=== PATIENT | female | born 1965 | race African-American/Black ===

== ENCOUNTER 2024-05-22 05:29 | Inpatient (IN) | payer OTHER ==
[2024-05-22] VITALS (11 sets, daily range): BP systolic 95–159; BP diastolic 62–86; PULSE 88–111; RESP 16–26; TEMP 97.9–98.3; O2SAT 96–100
[~2024-05-22] VITALS: Ht 167.6 cm; Wt 114.2 kg
[2024-05-22] MEDS: ALBUTEROL SULF 2.5 MG/0.5ML(0.5%) NEB SOLN NEB ONE ×3 (06:21→14:16)
[2024-05-22] MEDS: IPRATROPIUM BROM 0.5 MG/2.5ML INH SOL NEB ONE ×3 (06:21→14:16)
--- NOTE | 2024-05-22 07:24 | ED.PDOC ---
SOB-HPI HPI Comments 58Y F with PMHx DM, CHF, and asthma presents to ED for chief complaint SOB with cough. Per pt, she was recently seen at [facility] and tested negative for all the viruses. Pt was sent home with Albuterol but has not felt relief. Chief Complaint: Shortness of Breath Time Seen by MD: 06:40 Reviewed notes: Nurses Notes, Medications, Allergies Information Source: Patient Mode of Arrival: Ambulatory Severity: Moderate Timing: Days Duration: Since onset Context: At Rest PE Risk Factors: None History of: Asthma, CHF Modifying Factors: Nothing Associated Signs and Symptoms: Wheeze, Cough Past Medical History PAST MEDICAL HISTORY: Asthma, CHF, DM Surgical History: Denies all surgeries MEDICAL LOGISTICS SPECIALIST History: No Pertinent MEDICAL LOGISTICS SPECIALIST History Family History Family History: Unknown Social History Smoker: Non-Smoker Alcohol: Denies ETOH Use Drugs: Denies Drug Use Lives In: Home Constitutional: denies: chills, diaphoresis, fatigue, fever, malaise, sweats, weakness, others EENTM: denies: blurred vision, double vision, ear bleeding, ear discharge, ear drainage, ear pain, ear ringing, eye pain, eye redness, hearing loss, mouth pain, mouth swelling, nasal discharge, nose bleeding, nose congestion, nose pain, photophobia, tearing, throat pain, throat swelling, voice changes, others Respiratory: reports: cough, shortness of breath, wheezing; denies: hemoptysis, orthopnea, SOB at rest, SOB with excertion, stridor, others Cardiovascular: denies: chest pain, dizzy spells, diaphoresis, Dyspnea on exertion, edema, irregular heart beat, left arm pain, lightheadedness, palpitations, PND, syncope, others Gastrointestinal: denies: abdomen distended, abdominal pain, blood streaked bowels, constipated, diarrhea, dysphagia, difficulty swallowing, hematemesis, melena, nausea, poor appetite, poor fluid intake, rectal bleeding, rectal pain, vomiting, others Genitourinary: denies: abnormal vagina bleeding, burning, dyspareunia, dysuria, flank pain, frequency, hematuria, incontinence, pain, , vagina discharge, urgency, others Neurological: denies: dizziness, fainting, headache, left sided numbness, left sided weakness, numbness, paresthesia, pre-existing deficit, right sided numbness, right sided weakness, seizure, speech problems, tingling, tremors, weakness, others Musculoskeletal: denies: back pain, gout, joint pain, joint swelling, muscle pain, muscle stiffness, neck pain, others Integumetry: denies: bruises, change in color, change in hair/nails, dryness, laceration, lesions, lumps, rash, wounds, others Allergic/Immunocompromised: denies: Difficulty Healing, Frequent Infections, Hives, Itching, others Hematologic/Lymphatic: denies: anemia, blood clots, easy bleeding, easy bruising, swollen glands, others Endocrine: denies: excessive hunger, excessive sweating, excessive thirst, excessive urination, flushing, intolerance to cold, intolerance to heat, unexplained weight gain, unexplained weight loss, others Psychiatric: denies: anxiety, bipolar disorder, depression, hopeless, panic disorder, schizophrenia, sleepless, suicidal, others All Other Systems: Reviewed and Negative Physical Exam General Appearance: No Apparent Distress, Normal HEENT: Normal ENT Inspection, Pharynx Normal, TMs Normal Neck: Full Range of Motion, Non-Tender, Normal, Normal Inspection Respiratory: Chest Non-Tender, Wheezing (bilateral) Cardiovascular: No Edema, No JVD, No Murmur, No Gallop, Normal Peripheral Pulses, Regular Rate/Rhythm Breast Exam: Deferred Gastrointestinal: No Organomegaly, Non Tender, No Pulsatile Mass, Normal Bowel Sounds, Soft Genitalia: Deferred Pelvic: Deferred Rectal: Deferred Extremities: No calf tenderness, Normal capillary refill, Normal inspection, Normal range of motion, Non-tender, No pedal edema Musculoskeletal : Apperance: Normal Neurologic: Alert, refrigeration installer II-XII nml as Tested, No Motor Deficits, Normal Affect, Normal Mood, No Sensory Deficits Cerebellar Function: Normal Reflexes: Normal Skin: Dry, Normal Color, Warm Lymphatic: No Adenopathy Was a procedure done? Was a procedure done?: No Differential Dx Differential Diagnosis: Asthma, Bronchitis, CHF, URI X-Ray, Labs, Meds, VS Vital Signs Date Time Temp Pulse Resp B/P (MAP) Pulse Ox O2 Delivery O2 Flow Rate FiO2 05/22/24 08:07 98.6 133 26 145/68 (93) 97 98.6 05/22/24 08:07 133 26 97 Nasal Cannula 2.0 05/22/24 07:52 26 97 Nasal Cannula* 2 28 05/22/24 07:42 22 97 Nasal Cannula* 2 28 05/22/24 06:21 22 96 Nasal Cannula* 2 28 05/22/24 05:51 97.7 110 26 165/79 (107) 95 05/22/24 05:51 26 95 Room Air* 0 21 Lab Test 05/22/24 08:18 05/22/24 07:36 05/22/24 07:15 05/22/24 07:00 Range/Units Troponin I High Sensitivity 4 4 </=34 ng/L Blood Gas Specimen Type Arterial Blood Gas Sample Site Right radial Blood Gas Patient Temperature 37.0 Arterial Blood Date Drawn [id number] Arterial Blood pH 7.397 7.350-7.450 Arterial Blood Partial Pressure CO2 37.2 32.0-45.0 mmHg Arterial Blood Partial Pressure O2 66.7 L 83.0-108.0 mmHg Arterial Blood HCO3 22.4 21.0-28.0 mmol/L Arterial Blood Oxygen Saturation 91.6 L 94.0-98.0 % Arterial Blood Base Excess -2.0 -2.0-3.0 mmol/L Arterial Blood Oxyhemoglobin 90.2 L 94.0-98.0 % Arterial Blood Carboxyhemoglobin 1.1 0.5-1.5 % Arterial Blood Methemoglobin 0.4 0.0-1.5 % Shon Test Yes Blood Gas Total Hemoglobin 13.40 12.0-16.0 g/dL Blood Gas Liter Flow 2.00 Blood Gas Modality Nasal cannula FiO2 % 28.0 White Blood Count 18.4 H 4.4-10.8 10^3/uL Red Blood Count 4.91 4.0-5.20 10^6/uL Hemoglobin 13.0 12.2-16.2 g/dL Hematocrit 40.2 36.0-46.0 % Mean Corpuscular Volume 81.9 80.0-100.0 fL Mean Corpuscular Hemoglobin 26.4 L 28.0-32.0 pg Mean Corpuscular Hemoglobin Concent 32.2 32.0-36.0 g/dL Red Cell Distribution Width 16.7 H 11.8-14.3 % Platelet Count 303 140-450 10^3/uL Mean Platelet Volume 9.0 6.9-10.8 fL Neutrophils (%) (Auto) 72.8 37.0-80.0 % Lymphocytes (%) (Auto) 17.4 10.0-50.0 % Monocytes (%) (Auto) 3.5 0.0-12.0 % Eosinophils (%) (Auto) 5.6 0.0-7.0 % Basophils (%) (Auto) 0.7 0.0-2.0 % Neutrophils # (Auto) 13.4 H 1.6-8.6 10 ^3/uL Lymphocytes # (Auto) 3.2 0.4-5.4 10 ^3/uL Monocytes # (Auto) 0.6 0-1.3 10 ^3/uL Eosinophils # (Auto) 1.0 H 0-0.8 10 ^3/uL Basophils # (Auto) 0.1 0-0.2 10 ^3/uL Nucleated Red Blood Cells 0.0 % Sodium Level 136 136-145 mmol/L Potassium Level 3.9 3.5-5.1 mmol/L Chloride Level 105 98-107 mmol/L Carbon Dioxide Level 22 20-31 mmol/L Anion Gap 9 5-15 Blood Urea Nitrogen 19 9-23 mg/dL Creatinine 1.74 H 0.550-1.02 mg/dL Glomerular Filtration Rate Calc 34 >90 mL/min BUN/Creatinine Ratio 10.9 10.0-20.0 Serum Glucose 148 H 74-106 mg/dL Calcium Level 9.8 8.7-10.4 mg/dL Influenza Type A Antigen Negative Negative Influenza Type B Antigen Negative Negative SARS-CoV-2 Antigen (Rapid) Negative NEGATIVE Current Medications Medications (Trade) Dose Ordered Sig/Delio Route Start Time Stop Time Status Last Admin Albuterol (Ventolin Medneb) 5 mg ONCE ONCE [facility] 05/22/24 06:00 05/22/24 06:01 DC 05/22/24 06:21 Ipratropium [place] (Atrovent Medneb) 0.5 mg ONCE ONCE [facility] 05/22/24 06:00 05/22/24 06:01 DC 05/22/24 06:21 Albuterol (Ventolin Medneb) 20 mg ONCE ONCE [facility] 05/22/24 07:00 05/22/24 07:01 DC 05/22/24 07:42 Ipratropium [place] (Atrovent Medneb) 0.5 mg ONCE ONCE [facility] 05/22/24 07:00 05/22/24 07:01 DC 05/22/24 07:42 Methylprednisolone Sodium Succinate (Solu Medrol) 125 mg ONCE ONCE IV 05/22/24 07:00 05/22/24 07:01 DC 05/22/24 07:[address] [address] Ph: [phone] DIAGNOSTIC IMAGING Diagnostic Imaging Report : [id number] Signed PATIENT: AILIN BRUNERCT: [id number] UNIT: [id number] : 1965 LOC: ER ROOM / BED: / AGE / SEX: 58 / F ADM STATUS: REG ER SERVICE 1 ORDERING PHYSICIAN: SHEILA SCHMID MD PROCEDURE(s): CXRP - CHEST PORTABLE REASON: sob ORDER NUMBER(s): [id number], ACCESSION NUMBER(s): [id number] CHEST RADIOGRAPH Indication: sob Technique: Single frontal view of the chest was obtained Comparison: None FINDINGS: Lines and Tubes: None Lungs: No focal consolidation. Pleura: No effusion. No pneumothorax. Cardiomediastinal contours: Unremarkable Bones: No acute osseous abnormality. IMPRESSION: 1. No acute cardiopulmonary disease. ATED BY: KEITH IQBAL MD DICTATED DATE/TIME: 05/22/24727 SIGNED BY: KEITH IQBAL MD SIGNED DATE/TIME: 05/22/24727 CC: Time of 1ST Reevaluation: 07:10 Reevaluation 1ST: Unchanged Time of 2ND Reevaluation: 09:54 Reevaluation 2ND: Improved (though mildly improved, pt still has wheezes) Patient Education/Counseling: Diagnosis, Treatment, Prognosis, Need For Follow Up Family Education/Counseling: No Family Present Additional Information I reviewed the following notes from patient's past medical encounters: None. The following tests were ordered, and results were reviewed by me: EKG x3, CBC, BMP, Troponin x3, COVID19 Ag, Rapid influenza A&B, ABG, CXR Additional Information was gathered from interviewing the following independent historians: None. I reviewed and agreed with the following test results read by other providers: CXR I discussed treatment and results with medical personnel. Departure 1 Departure Time of Disposition: 09:54 Impression: Primary Impression: Asthma attack Qualified Codes: J45.41 - Moderate persistent asthma with (acute) exacerbation Disposition: 09 ADMITTED INPATIENT Admit to: Tele Condition: Serious Critical Care Note Critical Care Time?: Yes (45 min-critical care time only) Critical care comment: Due to concerns for patients condition deteriorating, the care required my highest level of attention and readiness to intervene. I assessed the patient, reviewed the medical records, ordered the appropriate tests and treatments, then reassessed for results and responsiveness. I communicated with medical personnel and consultants and formulated a plan of care. Total critical care time excludes any procedures Stability Stability form required: No Heart Score Heart Score: Heart Score Response (Comments) Value History N/A 0 EKG N/A 0 Age N/A 0 Risk Factors N/A 0 Troponin N/A 0 Total 0 I personally scribed for SHEILA SCHMID MD ([email or web address]) on 05/22/24 at 07:24. Electronically submitted by Cat Taylor ([employer]). I personally scribed for SHEILA SCHMID MD ([email or web address]) on 05/22/24 at 07:42. Electronically submitted by Cat Taylor ([employer]). SHEILA SCHMID MD May 22, 2024 07:24
[2024-05-22 07:28] LABS: Basophils # (auto) 0.1 10 ^3/uL (0-0.2); Lymphocytes # (auto) 3.2 10 ^3/uL (0.4-5.4); Mean Corpuscular Volume 81.9 fL (80.0-100.0); Red Cell Distribution Width 16.7 % (11.8-14.3)
[2024-05-22 07:30] LABS: Basophils % (auto) 0.7 % (0.0-2.0); Eosinophils % (auto) 5.6 % (0.0-7.0); Hematocrit 40.2 % (36.0-46.0); Lymphocytes % (auto) 17.4 % (10.0-50.0); Mean Corpuscular Hemoglobin 26.4 pg (28.0-32.0); Mean Corpuscular Hgb Conc. 32.2 g/dL (32.0-36.0); Monocytes # (auto) 0.6 10 ^3/uL (0-1.3); Monocytes % (auto) 3.5 % (0.0-12.0); Neutrophils # (auto) 13.4 10 ^3/uL (1.6-8.6); Neutrophils % (auto) 72.8 % (37.0-80.0); Platelet Count (auto) 303 10^3/uL (140-450); Red Blood Cells 4.91 10^6/uL (4.0-5.20); White Blood Cell 18.4 10^3/uL (4.4-10.8)
--- NOTE | 2024-05-22 07:31 | DVH ---
CHEST RADIOGRAPH Indication: sob Technique: Single frontal view of the chest was obtained Comparison: None FINDINGS: Lines and Tubes: None Lungs: No focal consolidation. Pleura: No effusion. No pneumothorax. Cardiomediastinal contours: Unremarkable Bones: No acute osseous abnormality. IMPRESSION: 1. No acute cardiopulmonary disease.
[2024-05-22 07:44] LABS: Chloride 105 mmol/L (98-107); Potassium 3.9 mmol/L (3.5-5.1)
[2024-05-22 07:45] LABS: Anion Gap 9 (5-15); Calcium 9.8 mg/dL (8.7-10.4); Carbon Dioxide 22 mmol/L (20-31)
[2024-05-22 07:47] LABS: COVID19 ANTIGEN SOFIA FIA NEGATIVE (NEGATIVE); Rapid Influenza A Negative (Negative); Rapid Influenza B Negative (Negative)
[2024-05-22 07:47] LABS: Sodium 136 mmol/L (136-145)
[2024-05-22 07:50] LABS: BUN/Creatinine Ratio 10.9 (10.0-20.0); Blood Urea Nitrogen 19 mg/dL (9-23)
[2024-05-22 07:51] LABS: Glucose 148 mg/dL (74-106)
[2024-05-22] MEDS: methylPREDNISolone SOD SUCC 125 MG/2 ML VL IV ONE (07:57)
[2024-05-22] MEDS: InsuLIN REG 1unit/0.01ml Soln (100units/ml) SC ONE (10:15)
[2024-05-22] MEDS: ALPRAZolam 0.25 MG TAB PO ONE (10:35)
[2024-05-22] MEDS ORDERED: IPRATROPIUM BROM 0.5 MG/2.5ML INH SOL NEB ONE (13:45)
[2024-05-22] MEDS ORDERED: ERGO1CAP12 PO (15:09)
[2024-05-22] MEDS ORDERED: LOS25T (15:09)
[2024-05-22] MEDS ORDERED: ALBUTEROL SULF 2.5 MG/0.5ML(0.5%) NEB SOLN NEB PRN (15:15)
[2024-05-22] MEDS ORDERED: ONDANSETRON HCL 4 MG/2 ML VIAL IV PRN (15:15)
[2024-05-22] MEDS ORDERED: DEXTROSE (50%) 50ML SYRG IV PRN (15:15)
[2024-05-22] MEDS ORDERED: IPRATROPIUM BROM 0.5 MG/2.5ML INH SOL NEB PRN (15:15)
[2024-05-22] MEDS ORDERED: ACETAMINOPHEN 325 MG TAB PO PRN (15:15)
--- NOTE | 2024-05-22 15:19 | DVHHP2 ---
History of Present Illness Reason for Visit: Shortness of breath and cough History of Present Illness Tricia Darden is a 58-year-old female with past medical history of clamped fibroids, diabetes, asthma, CHF, CKD 3 who presents to the ED with shortness of breath and cough x6 days. Patient reports that she has been sick since April 22, 2024 and had gone over to [place] on May 16, 2024 for the same issue but was only given respiratory treatments and discharged home. Patient reports that she was given a prescription for steroids but was never able to pick it up. Patient states she is here for an evaluation. She reports that she has been coughing up yellow productive sputum. She also reports that she has been using and inhaler at home with no relief. Patient denies any recent sick contacts, chest pain, abdominal pain, nausea, vomiting, diarrhea, lightheadedness, weakness, and dizziness. Cardiovascular: CHF Pulmonary: Asthma Renal/: Chronic renal insuff Endocrine: Diabetes Past Medical History Clamped fibroids Past Surgical History: Tubal Ligation Family History: None Smoke: No ALCOHOL: none Drugs: None Lives: with Family Domestic Violence: Neg Review of Systems Constitutional: No: Fever, Chills, Sweats, Weakness, Malaise, Other Eyes: No: Pain, Vision change, Conjunctivae inflammation, Eyelid inflammation, Other, Redness ENT: No: Ear pain, Ear discharge, Nose pain, Nose discharge, Nose congestion, Mouth pain, Mouth swelling, Throat pain, Throat swelling, Other Respiratory: Cough, Shortness of breath, Sputum; No: Dry, SOB with excertion, Wheezing, Hemoptysis, Pleuritic Pain, Wheezing, Other Cardiovascular: No: Chest Pain, Palpitations, Orthopnea, Paroxysmal Noc. Dyspnea, Edema, Lt Headedness, Other Gastrointestinal: No: Nausea, Vomiting, Abdominal Pain, Diarrhea, Constipation, Melena, Hematochezia, Other Genitourinary: No Dysuria, No Frequency, No Incontinence, No Hematuria, No Retention, No Other Musculoskeletal: No: other, neck pain, shoulder pain, arm pain, back pain, hand pain, leg pain, foot pain Skin: No: Rash, Lesions, Jaundice, Bruising, Other Neurological: No: Weakness, Numbness, Incoordination, Change in speech, Confusion, Seizures, Other Allergies: Coded Allergies: Iodine (Verified Allergy, Unknown, 05/22/24) Medications Current Medications Medications Dose Ordered Sig/Delio Route Start Time Stop Time Status Last Admin Dose Admin Ceftriaxone Sodium 50 ml @ 100 mls/hr DAILY@09 IV 05/23/24 09:00 UNV Methylprednisolone Sodium Succinate 40 mg Q8HR IV 05/22/24 22:00 UNV Famotidine 20 mg DAILY IV 05/23/24 10:00 UNV Albuterol 2.5 mg Q6HWA NEB 05/22/24 18:00 UNV Albuterol 2.5 mg Q4HPRN PRN NEB 05/22/24 15:15 UNV Ipratropium Lejunior 0.5 mg Q6HWA NEB 05/22/24 18:00 UNV Ipratropium [place]jun[place] 0.5 mg Q4HPRN PRN NEB 05/22/24 15:15 UNV Ondansetron HCl 4 mg Q4HP PRN IV 05/22/24 15:15 UNV Acetaminophen 650 mg Q6HP PRN PO 05/22/24 15:15 UNV Diagnostic Test (Pha) 1 strip ACHS 05/22/24 17:00 UNV Insulin Human Regular ACHS SC 05/22/24 17:00 UNV Dextrose 50 ml UD PRN IV 05/22/24 15:15 UNV Budesonide 0.5 mg BID NEB 05/22/24 22:00 UNV Exam Vital Signs Vital Signs Date Time Temp Pulse Resp B/P (MAP) Pulse Ox O2 Delivery O2 Flow Rate FiO2 05/22/24 14:15 99.1 111 24 154/76 (102) 97 99.1 05/22/24 08:07 Nasal Cannula 2.0 05/22/24 07:52 28 General Appearance: Alert, Oriented X3, Cooperative, mild distress HEENT: Atraumatic, PERRLA, EOMI, Mucous membr. moist/pink Respiratory: Normal air movement Cardiovascular: Normal S1, Normal S2, No murmurs Abdominal: Normal bowel sounds, Soft, No tenderness, No hepatospenomegaly, No masses Extremities: No clubbing, No cyanosis, No edema, Normal pulses, No tenderness/swelling Skin: No rashes, No breakdown, No significant lesion Neuro: Normal gait, Normal speech, Strength at 5/5 X4 ext, Normal tone, Sensation intact Psych/Mental Status: Mental status NL, Mood NL Labs/Xrays Labs Test 05/22/24 08:18 05/22/24 07:36 05/22/24 07:15 05/22/24 07:00 Range/Units Troponin I High Sensitivity 4 </=34 ng/L Blood Gas Specimen Type Arterial Blood Gas Sample Site Right radial Blood Gas Patient Temperature 37.0 Arterial Blood Date Drawn [id number] Arterial Blood pH 7.397 7.350-7.450 Arterial Blood Partial Pressure CO2 37.2 32.0-45.0 mmHg Arterial Blood Partial Pressure O2 66.7 L 83.0-108.0 mmHg Arterial Blood HCO3 22.4 21.0-28.0 mmol/L Arterial Blood Oxygen Saturation 91.6 L 94.0-98.0 % Arterial Blood Base Excess -2.0 -2.0-3.0 mmol/L Arterial Blood Oxyhemoglobin 90.2 L 94.0-98.0 % Arterial Blood Carboxyhemoglobin 1.1 0.5-1.5 % Arterial Blood Methemoglobin 0.4 0.0-1.5 % Shon Test Yes Blood Gas Total Hemoglobin 13.40 12.0-16.0 g/dL Blood Gas Liter Flow 2.00 Blood Gas Modality Nasal cannula FiO2 % 28.0 White Blood Count 18.4 H 4.4-10.8 10^3/uL Red Blood Count 4.91 4.0-5.20 10^6/uL Hemoglobin 13.0 12.2-16.2 g/dL Hematocrit 40.2 36.0-46.0 % Mean Corpuscular Volume 81.9 80.0-100.0 fL Mean Corpuscular Hemoglobin 26.4 L 28.0-32.0 pg Mean Corpuscular Hemoglobin Concent 32.2 32.0-36.0 g/dL Red Cell Distribution Width 16.7 H 11.8-14.3 % Platelet Count 303 140-450 10^3/uL Mean Platelet Volume 9.0 6.9-10.8 fL Neutrophils (%) (Auto) 72.8 37.0-80.0 % Lymphocytes (%) (Auto) 17.4 10.0-50.0 % Monocytes (%) (Auto) 3.5 0.0-12.0 % Eosinophils (%) (Auto) 5.6 0.0-7.0 % Basophils (%) (Auto) 0.7 0.0-2.0 % Neutrophils # (Auto) 13.4 H 1.6-8.6 10 ^3/uL Lymphocytes # (Auto) 3.2 0.4-5.4 10 ^3/uL Monocytes # (Auto) 0.6 0-1.3 10 ^3/uL Eosinophils # (Auto) 1.0 H 0-0.8 10 ^3/uL Basophils # (Auto) 0.1 0-0.2 10 ^3/uL Nucleated Red Blood Cells 0.0 % Sodium Level 136 136-145 mmol/L Potassium Level 3.9 3.5-5.1 mmol/L Chloride Level 105 98-107 mmol/L Carbon Dioxide Level 22 20-31 mmol/L Anion Gap 9 5-15 Blood Urea Nitrogen 19 9-23 mg/dL Creatinine 1.74 H 0.550-1.02 mg/dL Glomerular Filtration Rate Calc 34 >90 mL/min BUN/Creatinine Ratio 10.9 10.0-20.0 Serum Glucose 148 H 74-106 mg/dL Calcium Level 9.8 8.7-10.4 mg/dL Influenza Type A Antigen Negative Negative Influenza Type B Antigen Negative Negative SARS-CoV-2 Antigen (Rapid) Negative NEGATIVE CHEST RADIOGRAPH Indication: sob Technique: Single frontal view of the chest was obtained Comparison: None FINDINGS: Lines and Tubes: None Lungs: No focal consolidation. Pleura: No effusion. No pneumothorax. Cardiomediastinal contours: Unremarkable Bones: No acute osseous abnormality. IMPRESSION: 1. No acute cardiopulmonary disease. Assessment/Plan Assessment/Plan Assessment/Plan: Acute on chronic COPD exacerbation Leukocytosis likely secondary to suspecting pneumonia EMILY R/O sepsis Supportive oxygen Insulin given ED Respiratory treatments given in the ED ABG Flu swab negative COVID swab negative Xanax given in ED IV Solu-Medrol given ED Troponin negative x2 EKG Chest x-ray noted D-dimer ESR CRP Lactic Echo IV Solu-Medrol Respiratory treatments IV antibiotics-ceftriaxone Labs A.m. 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 Procedure Category Date Status Time D-Dimer LAB 05/22/24 Logged 15:01 C-Reactive Protein LAB 05/22/24 Logged 15:01 Lactic Acid W/ Reflex LAB 05/22/24 Logged Order 15:01 Erythrocyte LAB 05/22/24 Logged Sedimentation Rate 15:01 Ceftriaxone 1gm/50ml PHA 05/23/24 Logged D5w (Rocephin) 09:00 Ceftriaxone 1gm/50ml PHA 05/22/24 Logged D5w (Rocephin) 15:15 Methylprednisolone PHA 05/22/24 Logged Sod Succ (Solu Medrol 22:00 Famotidine Injection PHA 05/23/24 Logged (Pepcid Injection) 10:00 Albuterol Medneb PHA 05/22/24 Logged (Ventolin Medneb) 18:00 Albuterol Medneb PHA 05/22/24 Logged (Ventolin Medneb) 15:15 Ipratropium Medneb PHA 05/22/24 Logged (Atrovent Medneb) 18:00 Ipratropium Medneb PHA 05/22/24 Logged (Atrovent Medneb) 15:15 Admit ADMIT 05/22/24 Transmitted 15:01 Allergies LUCIANA 05/22/24 In Process 15:01 Code Status CODE 05/22/24 Transmitted 15:01 Ondansetron Hcl PHA 05/22/24 Logged (Zofran) 15:15 Complete Blood Count LAB 05/23/24 Verified 04:00 Comprehensive LAB 05/23/24 Verified Metabolic Panel 04:00 Cardiac DIET 05/22/24 Transmitted Diet-2gna,Lofat,Lochol Dinner Echo 2d Mode Cardiac US 05/22/24 Logged DOP 15:01 Acetaminophen Tablet PHA 05/22/24 Logged (Tylenol Tablet) 15:15 Chest Xray 1 View XY 05/23/24 Logged 04:00 Hemoglobin A1c LAB 05/22/24 Logged 15:07 Glucose Blood PHA 05/22/24 Logged (Accu-Chek Comfort 17:00 Insulin R (Human) PHA 05/22/24 Logged (Insulin R) 17:00 Dextrose 50% Syringe PHA 05/22/24 Logged 15:15 Budesonide PHA 05/22/24 Transmitted (Inhalation) 22:00 Date of Service: May 22, 2024 Billing Provider: YOVANA FLORES Common Visit Codes: [id number] INP/OBS CARE (HIGH) YOVANA FLORES May 22, 2024 15:19
[2024-05-22] MEDS: cefTRIAXone 1GM/50ML D5W 50 ML IV ONE (16:43)
[2024-05-22] MEDS: ACCU-CHEK COMFORT CURVE STRIP VI SCH (17:18)
[2024-05-22] MEDS: InsuLIN REG 1unit/0.01ml Soln (100units/ml) SC SCH (17:20)
[2024-05-22 17:52] LABS: Erythrocyte Sedimentation Rate 39 mm/hr (0-20)
[2024-05-22] MEDS: SODIUM CHLORIDE 0.9% 1,000 ML IV SCH (18:04)
[2024-05-22] MEDS ORDERED: INSU100I76 SC (18:36)
[2024-05-22] MEDS ORDERED: INSU100I60 SC (18:36)
[2024-05-22] MEDS: BUDESONIDE (INHALATION) 0.5 MG/2 ML NEB NEB SCH (19:20)
[2024-05-22] MEDS: ALBUTEROL SULF 2.5 MG/0.5ML(0.5%) NEB SOLN NEB SCH (19:20)
[2024-05-22] MEDS: IPRATROPIUM BROM 0.5 MG/2.5ML INH SOL NEB SCH (19:20)
[2024-05-22 21:01] LABS: Lactic Acid w/Reflex 2.7 mmol/L (0.4-2.0)
[2024-05-23] VITALS (13 sets, daily range): BP systolic 132–165; BP diastolic 64–85; PULSE 71–94; RESP 16–20; TEMP 97.9–98.1; O2SAT 93–99
[2024-05-23] MEDS: methylPREDNISolone SOD SUCC 40 MG/ML VL IV SCH ×2 (00:33→23:35)
[2024-05-23] MEDS: ACCU-CHEK COMFORT CURVE STRIP VI SCH (04:32)
[2024-05-23] MEDS: InsuLIN REG 1unit/0.01ml Soln (100units/ml) SC SCH (04:35)
--- NOTE | 2024-05-23 06:29 | DVH ---
CHEST RADIOGRAPH Indication: sob Technique: Single frontal view of the chest was obtained Comparison: XY CHEST PORTABLE on DOS: 05/22/24 FINDINGS: Lines and Tubes: None Lungs: No focal consolidation. Pleura: No effusion. No pneumothorax. Cardiomediastinal contours: Unremarkable Bones: No acute osseous abnormality. IMPRESSION: 1. No acute cardiopulmonary disease.
[2024-05-23 07:17] LABS: Basophils # (auto) 0 10 ^3/uL (0-0.2); Basophils % (auto) 0.2 % (0.0-2.0); Eosinophils # (auto) 0 10 ^3/uL (0-0.8); Eosinophils % (auto) 0.1 % (0.0-7.0); Hemoglobin 11.9 g/dL (12.2-16.2); Lymphocytes % (auto) 9.7 % (10.0-50.0); Monocytes # (auto) 0.4 10 ^3/uL (0-1.3); Monocytes % (auto) 2.1 % (0.0-12.0); Neutrophils % (auto) 87.9 % (37.0-80.0)
[2024-05-23 07:19] LABS: Hematocrit 37.2 % (36.0-46.0); Lymphocytes # (auto) 1.8 10 ^3/uL (0.4-5.4); Mean Corpuscular Hemoglobin 26.3 pg (28.0-32.0); Mean Corpuscular Hgb Conc. 32.1 g/dL (32.0-36.0); Mean Corpuscular Volume 82.1 fL (80.0-100.0); Nucleated Red Blood Cells % 0.1 %; Platelet Count (auto) 273 10^3/uL (140-450); Red Blood Cells 4.53 10^6/uL (4.0-5.20); White Blood Cell 18.1 10^3/uL (4.4-10.8)
[2024-05-23 07:29] LABS: Alanine Aminotransferase 19 U/L (7-40); Albumin 4.1 g/dL (3.2-4.8); Anion Gap 8 (5-15); Aspartate Aminotransferase 13 U/L (13-40); BUN/Creatinine Ratio 12.6 (10.0-20.0); Blood Urea Nitrogen 22 mg/dL (9-23); Calcium 10.2 mg/dL (8.7-10.4); Chloride 105 mmol/L (98-107); Potassium 4.8 mmol/L (3.5-5.1); Total Protein 7.8 g/dL (5.7-8.2)
[2024-05-23 07:32] LABS: Alkaline Phosphatase 166 U/L (46-116); Bilirubin, Total 0.3 mg/dL (0.2-1.0); Carbon Dioxide 19 mmol/L (20-31); Glucose 329 mg/dL (74-106); Sodium 132 mmol/L (136-145)
[2024-05-23] MEDS: cefTRIAXone 1GM/50ML D5W 50 ML IV SCH (09:20)
[2024-05-23] MEDS: FAMOTIDINE (10MG/ML) 2ML VL IV SCH (09:20)
[2024-05-23] MEDS: INSULIN LANTUS (GLARGINE) 1 /0.01ml (100units/ml) SC ONE (12:30)
[2024-05-23] MEDS: AZITHROMYCIN 250 MG TAB PO ONE (17:00)
--- NOTE | 2024-05-23 17:07 | DVHPN2 ---
Subjective Seen and examined at bedside. Still mildy short of breath. Control blood sugars. Patient was seen at [facility] ED and was sent home and started feeling worse, therefore came to the ED at [facility]. Changes from previous H/P or p: No Changes Eyes: No Pain, No Vision change, No Conjunctivae inflammation, No Eyelid inflammation, No Other, No Redness ENT: No Ear pain, No Ear discharge, No Nose pain, No Nose discharge, No Nose congestion, No Mouth pain, No Mouth swelling, No Throat pain, No Throat swelling, No Other Cardiovascular: No Chest Pain, No Palpitations, No Orthopnea, No Paroxysmal Noc. Dyspnea, No Edema, No Lt Headedness, No Other Respiratory: Cough; No Dry; Shortness of breath; No SOB with excertion, No Wheezing, No Hemoptysis, No Pleuritic Pain; Sputum; No Other Gastrointestinal: No Nausea, No Vomiting, No Abdominal Pain, No Diarrhea, No Constipation, No Melena, No Hematochezia, No Other Genitourinary: No Dysuria, No Frequency, No Incontinence, No Hematuria, No Retention, No Other Musculoskeletal: No other, No neck pain, No shoulder pain, No arm pain, No back pain, No hand pain, No leg pain, No foot pain Skin: No Rash, No Lesions, No Jaundice, No Bruising, No Other Objective Vitals Vital Signs Date Time Temp Pulse Resp B/P (MAP) Pulse Ox O2 Delivery O2 Flow Rate FiO2 05/23/24 13:00 98.0 83 17 148/85 (106) 95 98.0 05/23/24 09:30 Nasal Cannula* 2 28 Intake/Output Intake and Output 05/23/24 07:00 Intake Total 350 ml Balance 350 ml Intake Oral 350 ml # Voids 4 General Appearance: Alert, Oriented X3, Cooperative, mild distress Lungs: Other (Wheezing+) Cardiovascular: Regular rate, Normal S1, Normal S2 Abdomen: Normal bowel sounds, Soft Rectal: Deferred Psych/Mental Status: Mental status NL Medications Current Medications Medications Dose Ordered Sig/Delio Route Start Time Stop Time Status Last Admin Dose Admin Ceftriaxone Sodium 50 ml @ 100 mls/hr DAILY@09 IV 05/23/24 09:00 05/23/24 09:20 100 MLS/HR Methylprednisolone Sodium Succinate 40 mg Q8HR IV 05/22/24 22:00 05/23/24 14:28 40 MG Famotidine 20 mg DAILY IV 05/23/24 10:00 05/23/24 09:20 20 MG Albuterol 2.5 mg Q6HWA NEB 05/22/24 18:00 05/22/24 19:20 2.5 MG Albuterol 2.5 mg Q4HPRN PRN NEB 05/22/24 15:15 Ipratropium [place] 0.5 mg Q6HWA NEB 05/22/24 18:00 05/23/24 12:01 0.5 MG Ipratropium [place] 0.5 mg Q4HPRN PRN NEB 05/22/24 15:15 Ondansetron HCl 4 mg Q4HP PRN IV 05/22/24 15:15 Acetaminophen 650 mg Q6HP PRN PO 05/22/24 15:15 Dextrose 50 ml UD PRN IV 05/22/24 15:15 Budesonide 0.5 mg BID NEB 05/22/24 22:00 05/23/24 06:10 0.5 MG Sodium Chloride 1,000 ml @ 75 mls/hr [id number] IV 05/22/24 17:30 05/23/24 06:50 75 MLS/HR Diagnostic Test (Pha) 1 strip IQ4HR 05/23/24 04:00 05/23/24 16:22 1 STRIP Insulin Human Regular IQ4HR SC 05/23/24 04:00 05/23/24 16:21 6 UNITS Insulin Glargine 20 units QAM SC 05/24/24 07:00 Laboratory Results Laboratory Tests 05/23/24 05:22 Chemistry Test 05/23/24 05:22 Albumin 4.1 g/dL (3.2-4.8) Calcium Level 10.2 mg/dL (8.7-10.4) Total Protein 7.8 g/dL (5.7-8.2) Coagulation Test 05/22/24 20:02 D-Dimer, Quantitative 2.53 mg/L FEU (0.0-0.49) H LFT Test 05/23/24 05:22 Alanine Aminotransferase (ALT) 19 U/L (7-40) Alkaline Phosphatase 166 U/L (46-116) H Aspartate Amino Transferase (AST) 13 U/L (13-40) Total Bilirubin 0.3 mg/dL (0.2-1.0) Assessment/Plan Assessment/Plan Acute on chronic COPD exacerbation- Solumedrol, Zithromax Leukocytosis likely secondary to suspecting pneumonia vs SIRS- Abx EMILY on CKD- Baseline unknown possibly due to VMN?? DM2 with hyperglycemia A1c 8.7- SSI Elevated D-Dimer- Check for DVT and PE Plan discussed with: Patient My Orders Orders - NOA REECE MD Procedure Category Date Status Time Insulin Lantus PHA 05/24/24 In Process (Glargine) (Lantus) 07:00 Urinalysis LAB 05/23/24 Logged 16:57 Methylprednisolone PHA 05/23/24 Transmitted Sod Succ (Solu Medrol 22:00 Azithromycin Tablet PHA 05/23/24 Transmitted (Zithromax Tablet) 17:00 Azithromycin Tablet PHA 05/24/24 Transmitted (Zithromax Tablet) 10:00 Urine Sodium LAB 05/23/24 Logged 16:57 Urine Creatinine LAB 05/23/24 Logged 16:57 Basic Metabolic Panel LAB 05/24/24 Verified 04:00 Date of Service: May 23, 2024 Billing Provider: NOA REECE MD Common Visit Codes: [id number] INP/OBS CARE(HIGH) NOA REECE MD May 23, 2024 17:07
--- NOTE | 2024-05-23 17:54 | DVH ---
Bilateral lower extremity venous duplex Clinical History: DVT Comparison: None Technique: Duplex Doppler evaluation of the deep venous systems of both lower extremities from the common femora l veins to the popliteal veins including color Doppler and spectral/pulsed waveform analysis was perf ormed. Findings: RIGHT SIDE: The common femoral vein demonstrates appropriate compressibility and waveform variability. There is compressibility/patency of the great saphenous vein at the proximal thigh. The femoral vein demonstrates appropriate compressibility and waveform variability. The deep femoral vein demonstrates appropriate compressibility and waveform variability. The popliteal vein demonstrates appropriate compressibility and waveform variability. There is normal compressibility at the tibioperoneal trunk. LEFT SIDE: The common femoral vein demonstrates appropriate compressibility and waveform variability. There is compressibility/patency of the great saphenous vein at the proximal thigh. The femoral vein demonstrates appropriate compressibility and waveform variability. The deep femoral vein demonstrates appropriate compressibility and waveform variability. The popliteal vein demonstrates appropriate compressibility and waveform variability. There is normal compressibility at the tibioperoneal trunk. Impression: No right or left femoropopliteal venous thrombosis.
[2024-05-23 18:08] LABS: Creatinine, Urine 58.12 mg/dL (30.0-125.0)
[2024-05-23 18:11] LABS: Urine Bacteria FEW /hpf (None Seen); Urine Blood 1+ /uL (Negative); Urine Clarity Clear (Clear); Urine Color Colorless (Yellow); Urine Protein, UAD 1+ (Negative); Urine Specific Gravity 1.014 (1.001-1.035); Urine Squamous Epithelial Cell FEW /hpf (<5); Urine Urobilinogen Normal (Negative); Urine WBC 1 /hpf (0 - 5); Urine pH 5.5 (5.0-9.0)
--- NOTE | 2024-05-23 19:37 | DVHSR ---
APPROVED REPORT EXAM: Two-dimensional and M-mode echocardiogram with Doppler and color Doppler. Blood Pressure: 144/79 mmHg INDICATION SOB RISK FACTORS Obesity: Height: 5'6, Weight: 243 DIMENSIONS LVDd4.1 (3.8-5.7cm)LA (2D)3.5 (1.9-4.0cm)Aortic Root2.7 (2.0-3.7cm) LVDs2.7 (2.5-4.0cm)LA (MM) (1.9-4.0cm)Aortic Cusp Exc1.1 (1.5-2.0cm) EF (%) 60.0 (55-70%)Rt. Atrium3.6 (1.9-4.0cm)Asc. Aorta2.5 cm IVSd1.1 (0.7-1.1cm)RV (D)3.8 (1.8-2.4cm) PWd1.1 (0.7-1.1cm) Mitral Valve MitralMitral Stenosis E wave0.90m/sMV Mean GR.mmHg A wave0.88m/sMV Peak GR.59mmHg E/A ratio1.02D MVAcm2 DECEL [id number] 1/2 Tim[place] Aortic Valve Aortic ValveAortic Stenosis V10.89m/Felicitas Mean GR.6mmHg V21.51m/Felicitas Peak GR.9mmHg LVOT Diameter1.8 (1.8-2.4cm)Doppler AVA1.50cm2 Pulmonic Valve V20.90m/s LEFT VENTRICLE Normal left ventricular size. Normal wall thickness. Ejection fraction is normal and is estimated at 60%. No regional wall motion abnormalites. Diastolic function is preserved. E to E' ration is in norm al range. RIGHT VENTRICLE Normal size and systolic function. ATRIA Both atria are of normal size. MITRAL VALVE Normal structure and function. No significant regurgitation. PULMONIC VALVE Not well visualized. TRICUSPID VALVE Normal structure and function. Trace regurgitation. PA systolic pressure not adequately estimated. AORTIC VALVE Not well visualized. No significant stenosis. GREAT VESSELS Aortic root and proximal ascending aorta are of normal size. PERICARDIAL EFFUSION No pericardial effusion. IVC not visualized. Other Information Quality : Technically DifficultRhythm : Technically limited study due to patient position.body habitus. Conclusion Study is technically limited. Normal left ventricular size and systolic function. Normal right ventricular size and systolic function. No hemodynamically significant vlavular disease. PA systolic pressure not adequately estimated.
[2024-05-24] VITALS (14 sets, daily range): BP systolic 130–161; BP diastolic 62–97; PULSE 66–104; RESP 16–20; TEMP 97.6–98.1; O2SAT 94–100
[2024-05-24 08:24] LABS: Anion Gap 10 (5-15); Carbon Dioxide 21 mmol/L (20-31); Chloride 104 mmol/L (98-107); Potassium 4.8 mmol/L (3.5-5.1)
[2024-05-24 08:30] LABS: BUN/Creatinine Ratio 20.6 (10.0-20.0)
[2024-05-24 08:32] LABS: Blood Urea Nitrogen 34 mg/dL (9-23); Calcium 10.6 mg/dL (8.7-10.4); Glucose 254 mg/dL (74-106); Sodium 135 mmol/L (136-145)
[2024-05-24] MEDS: AZITHROMYCIN 250 MG TAB PO SCH (09:02)
[2024-05-24] MEDS: INSULIN LANTUS (GLARGINE) 1 /0.01ml (100units/ml) SC SCH (09:17)
--- NOTE | 2024-05-24 11:07 | DVH ---
CLINICAL INFORMATION: 58 years old, Female; PULMONARY EMBOLISM. No other clinical information provid ed. Indication on recent chest radiograph and cardiac echo was shortness of breath. TECHNIQUE: 5.3 mCi of Xenon-133 gas was used for the ventilation portion of the exam. Posterior vent ilation imaging was obtained. 6.1 mCi of technetium 99m MAA was used for the perfusion portion of the exam. Imaging was obtained in multiple planes of projection. COMPARISON: Chest radiograph dated 05/23/2024. FINDINGS: Perfusion imaging shows no mismatched segmental or subsegmental segmental defects. Ventilation imaging shows no defects. There is normal washout. IMPRESSION: Normal exam. No evidence of pulmonary embolism.
--- NOTE | 2024-05-24 15:32 | DVHDS2 ---
Discharge Summary Date of Admission May 22, 2024 at 15:01 Date of Discharge: May 24, 2024 Labs/Diagnostic Data: Laboratory Results Test 05/24/24 08:34 05/24/24 06:37 05/23/24 17:15 05/23/24 05:22 POC Glucose 361 mg/dl (70-106) Sodium Level 135 mmol/L (136-145) Potassium Level 4.8 mmol/L (3.5-5.1) Chloride Level 104 mmol/L (98-107) Carbon Dioxide Level 21 mmol/L (20-31) Anion Gap 10 (5-15) Blood Urea Nitrogen 34 mg/dL (9-23) Creatinine 1.65 mg/dL (0.550-1.02) Glomerular Filtration Rate Calc 36 mL/min (>90) BUN/Creatinine Ratio 20.6 (10.0-20.0) Serum Glucose 254 mg/dL (74-106) Calcium Level 10.6 mg/dL (8.7-10.4) Urine Color Colorless (Yellow) Urine Clarity Clear (Clear) Urine pH 5.5 (5.0-9.0) Urine Specific [place] 1.014 (1.001-1.035) Urine Protein 1+ (Negative) Urine Ketones Negative (Negative) Urine Blood 1+ /uL (Negative) Urine Nitrite Negative (Negative) Urine Bilirubin Negative (Negative) Urine Urobilinogen Normal mg/dL (Negative) Urine Leukocyte Esterase Negative /uL (Negative) Urine RBC 2 /hpf (0 - 4) Urine WBC 1 /hpf (0 - 5) Urine Squamous Epithelial Cells Few /hpf (<5) Urine Bacteria Few /hpf (None Seen) Urine Creatinine 58.12 mg/dL (30.0-125.0) Urine Sodium 78 mmol/L (40-220) Urine Glucose 4+ mg/dL (Normal) White Blood Count 18.1 10^3/uL (4.4-10.8) Red Blood Count 4.53 10^6/uL (4.0-5.20) Hemoglobin 11.9 g/dL (12.2-16.2) Hematocrit 37.2 % (36.0-46.0) Mean Corpuscular Volume 82.1 fL (80.0-100.0) Mean Corpuscular Hemoglobin 26.3 pg (28.0-32.0) Mean Corpuscular Hemoglobin Concent 32.1 g/dL (32.0-36.0) Red Cell Distribution Width 17.0 % (11.8-14.3) Platelet Count 273 10^3/uL (140-450) Mean Platelet Volume 9.9 fL (6.9-10.8) Neutrophils (%) (Auto) 87.9 % (37.0-80.0) Lymphocytes (%) (Auto) 9.7 % (10.0-50.0) Monocytes (%) (Auto) 2.1 % (0.0-12.0) Eosinophils (%) (Auto) 0.1 % (0.0-7.0) Basophils (%) (Auto) 0.2 % (0.0-2.0) Neutrophils # (Auto) 16.0 10 ^3/uL (1.6-8.6) Lymphocytes # (Auto) 1.8 10 ^3/uL (0.4-5.4) Monocytes # (Auto) 0.4 10 ^3/uL (0-1.3) Eosinophils # (Auto) 0 10 ^3/uL (0-0.8) Basophils # (Auto) 0 10 ^3/uL (0-0.2) Nucleated Red Blood Cells 0.1 % Total Bilirubin 0.3 mg/dL (0.2-1.0) Aspartate Amino Transferase (AST) 13 U/L (13-40) Alanine Aminotransferase (ALT) 19 U/L (7-40) Alkaline Phosphatase 166 U/L (46-116) Total Protein 7.8 g/dL (5.7-8.2) Albumin 4.1 g/dL (3.2-4.8) Test 05/22/24 21:55 05/22/24 20:02 05/22/24 08:18 05/22/24 07:36 Lactic Acid Level 2.2 mmol/L (0.4-2.0) D-Dimer, Quantitative 2.53 mg/L FEU (0.0-0.49) Troponin I High Sensitivity 4 ng/L (</=34) Blood Gas Specimen Type Arterial Blood Gas Sample Site Right radial Blood Gas Patient Temperature 37.0 Arterial Blood Date Drawn [id number] Arterial Blood pH 7.397 (7.350-7.450) Arterial Blood Partial Pressure CO2 37.2 mmHg (32.0-45.0) Arterial Blood Partial Pressure O2 66.7 mmHg (83.0-108.0) Arterial Blood HCO3 22.4 mmol/L (21.0-28.0) Arterial Blood Oxygen Saturation 91.6 % (94.0-98.0) Arterial Blood Base Excess -2.0 mmol/L (-2.0-3.0) Arterial Blood Oxyhemoglobin 90.2 % (94.0-98.0) Arterial Blood Carboxyhemoglobin 1.1 % (0.5-1.5) Arterial Blood Methemoglobin 0.4 % (0.0-1.5) Shon Test Yes Blood Gas Total Hemoglobin 13.40 g/dL (12.0-16.0) Blood Gas Liter Flow 2.00 Blood Gas Modality Nasal cannula FiO2 % 28.0 Test 05/22/24 07:15 05/22/24 07:00 Erythrocyte Sedimentation Rate 39 mm/hr (0-20) Hemoglobin A1c 8.9 % A1C (<5.7) C-Reactive Protein High Sensitivity 1.98 mg/dL (<1.0) Influenza Type A Antigen Negative (Negative) Influenza Type B Antigen Negative (Negative) SARS-CoV-2 Antigen (Rapid) Negative (NEGATIVE) Other Laboratory Tests 05/24/24 06:37 05/23/24 05:22 Brief Hx & Hospital Course: Tricia Darden is a 58-year-old female with past medical history of clamped fibroids, diabetes, asthma, CHF, CKD 3 who presents to the ED with shortness of breath and cough x6 days. Patient reports that she has been sick since April 22, 2024 and had gone over to [place] on May 16, 2024 for the same issue but was only given respiratory treatments and discharged home. Patient reports that she was given a prescription for steroids but was never able to pick it up. Patient states she is here for an evaluation. She reports that she has been coughing up yellow productive sputum. She also reports that she has been using and inhaler at home with no relief. Patient was treated with Solumedrol and Zithromax. Will be transferred to [facility] for insurance purposes. Condition at Discharge: Stable Final Diagnosis/Problems List Acute on chronic COPD exacerbation- Solumedrol, Zithromax Leukocytosis likely secondary to suspecting pneumonia vs SIRS EMILY on CKD- Baseline unknown possibly due to VMN?? DM2 with hyperglycemia A1c 8.7- SSI Elevated D-Dimer- Check for DVT and PE Discharge Disposition: Home Discharge Instruct/Medications Diet: Consistent carbohydrate Activity: Light activity Discharge Statement: "Patient was advised to return to the ER or call 911 if any headaches, dizziness, shortness of breath, chest pain, abdominal pain, bleeding, fevers, or worsening of medical condition. Patient was counseled about treatment plan, medications, possible side effects, patientverbalized understanding. All questions were answered to the best of my ability. This discharge took greater then 30 minutes in planning, reviewing documentation, counseling the patient, and discussing with other team members." ASSESSMENT ASSESSMENT Assessment Date of Service: May 24, 2024 Billing Provider: NOA REECE MD Common Visit Codes: 58178-ROW/OBS DISCH DAY >30min NOA REECE MD May 24, 2024 15:32
[2024-05-24] MEDS: cloNIDine HCL 0.1 MG TAB PO PRN (16:51)
== END 2024-05-24 20:50 | disposition short-term general hospital (02) | DRG 190 ==
LOC: ER 05:29 → OVERFLOW 15:01 → WEST WING 22:16
PROVIDERS: ADMIT Internal Medicine; ATTEND Internal Medicine
DX: J44.1 Chronic obstructive pulmonary disease with (acute) exacerbation (principal); J18.9 Pneumonia, unspecified organism; N17.0 Acute kidney failure with tubular necrosis; R65.10 Systemic inflammatory response syndrome (SIRS) of non-infectious origin without acute organ dysfunction; J44.0 Chronic obstructive pulmonary disease with (acute) lower respiratory infection; N18.30 Chronic kidney disease, stage 3 unspecified; I50.9 Heart failure, unspecified; Z20.822 Contact with and (suspected) exposure to COVID-19; E11.22 Type 2 diabetes mellitus with diabetic chronic kidney disease; E11.65 Type 2 diabetes mellitus with hyperglycemia; Z91.041 Radiographic dye allergy status
CPT/HCPCS: 36415; 36600; 71045; 78582; 80048; 80053; 81001; 82570; 82805; 82962; 83036; 83605; 84300; 84484; 85025; 85379; 85652; 86141; 87426; 87804; 93306; 93970; 94640; 96365; 96372; 96375; 99291; G0378; J1815; J3490

== ENCOUNTER 2024-08-22 04:42 | Inpatient (IN) | payer OTHER ==
[~2024-08-22] VITALS: Ht 167.6 cm; Wt 108.7 kg
[2024-08-22] MEDS: MAGNESIUM SULFATE 1GM/100ML 100 ML IV SCH (04:15)
[~2024-08-22 04:42] MED LIST: ERGO1CAP12 PO; INSU100I60 SC; INSU100I76 SC; LOS25T
[2024-08-22] MEDS: DexAMETHasone SOD PHOS 10MG/1ML VIAL INJ IM ONE (04:51)
[2024-08-22] MEDS: MAGNESIUM SULFATE 1GM/100ML 200 ML IV ONE (04:51)
--- NOTE | 2024-08-22 04:52 | ED.PDOC ---
SOB-HPI HPI Comments 59 year old presents to the ED via EMS with a chief complaint of shortness of breath onset 2 days. Per EMS, patient called 911 due to shortness of breath, O2 sat on RA was not obtained, was placed on 15L and current O2 sat was 100%, BP was 160/92. Per EMS, patient was given Albuterol, Versed and 2 doses of Epi prior to ED arrival. PMHx asthma, CHF, CKF, HTN, DM. Denies chest pain, headache, dizziness, nausea, vomiting, diarrhea. No other symptoms or modifying factors present at this time. Time Seen by MD: 04:38 Reviewed notes: Medications, Allergies Information Source: Patient, Emergency Med Personnel Mode of Arrival: EMS Severity: Moderate Timing: Days Duration: Since onset Context: At Rest PE Risk Factors: None History of: Asthma, CHF Prehospital treatment: Breathing Tx, Oxygen Modifying Factors: Nothing Associated Signs and Symptoms: Wheeze If cough with SOB: Non-Productive Vital Signs Vital Signs Date Time Temp Pulse Resp B/P (MAP) Pulse Ox O2 Delivery O2 Flow Rate FiO2 08/22/24 06:51 90 21 122/68 (86) 96 08/22/24 05:45 Nasal Cannula* 4 36 08/22/24 05:01 98.7 98.7 Physical Exam General: Awake, alert and oriented. No acute distress. Skin: Skin in warm, dry and intact. Appropriate color for ethnicity. HEENT: The head is normocephalic and atraumatic. Conjunctivae are clear without exudates or hemorrhage. Sclera is non-icteric. EOM are intact. No signs of nystagmus. Eyelids are normal in appearance without swelling or lesions. Oral mucosa is pink and moist Neck: The neck is supple with normal range of motion. No JVD. Cardiac: Heart rate and rhythm are normal. No murmurs, gallops, or rubs are auscultated. Respiratory: Tachypnea. Wheezes throughout Abdominal: Abdomen is soft, non-tender without distention. Bowel sounds are present and normoactive in all four quadrants. Extremities: Upper and lower extremities are atraumatic in appearance without deformity or edema. Neurological: The patient is awake, alert and oriented to person, place, and t errol with normal speech. Speech is clear. There is no facial asymmetry. Psychiatric: Appropriate mood and affect. Good judgement and insight. Review of Systems: REVIEW OF SYSTEMS: UNABLE TO OBTAIN DUE TO RESPIRATORY STATUS Past Medical History PAST MEDICAL HISTORY: Asthma, CHF, CKF, DM, HTN Surgical History: Denies all surgeries GEOGRAPHICAL HISTORIAN History: No Pertinent GEOGRAPHICAL HISTORIAN History Family History Family History: Unknown Social History Smoker: Non-Smoker Alcohol: Denies ETOH Use Drugs: Denies Drug Use Lives In: Home EKG EKG : Pulse Rate (adult): 152 [place]: Normal Cardiac Rhythm: NSR (83 bpm), SB Was a procedure done? Was a procedure done?: No X-Ray, Labs, Meds, VS Vital Signs Date Time Temp Pulse Resp B/P (MAP) Pulse Ox O2 Delivery O2 Flow Rate FiO2 08/22/24 06:51 90 21 122/68 (86) 96 08/22/24 05:45 20 99 Nasal Cannula* 4 36 08/22/24 05:01 175 26 95 Nasal Cannula* 4 36 08/22/24 05:01 Facial BiPAP Mask 21 08/22/24 05:01 98.7 175 26 120/72 (88) 95 98.7 08/22/24 04:54 97.8 89 28 120/62 (81) 100 97.8 08/22/24 04:54 100 Non-Rebreather 15 N/A 08/22/24 04:52 152 08/22/24 04:45 83 Lab Test 08/22/24 06:30 08/22/24 05:29 08/22/24 05:08 Range/Units Influenza Type A Antigen Pending Influenza Type B Antigen Pending SARS-CoV-2 Antigen (Rapid) Pending White Blood Count 21.1 H 4.4-10.8 10^3/uL Red Blood Count 4.68 4.0-5.20 10^6/uL Hemoglobin 12.5 12.2-16.2 g/dL Hematocrit 38.7 36.0-46.0 % Mean Corpuscular Volume 82.8 80.0-100.0 fL Mean Corpuscular Hemoglobin 26.7 L 28.0-32.0 pg Mean Corpuscular Hemoglobin Concent 32.2 32.0-36.0 g/dL Red Cell Distribution Width 15.8 H 11.8-14.3 % Platelet Count 273 140-450 10^3/uL Mean Platelet Volume 8.8 6.9-10.8 fL Neutrophils (%) (Auto) 56.3 37.0-80.0 % Lymphocytes (%) (Auto) 28.0 10.0-50.0 % Monocytes (%) (Auto) 5.3 0.0-12.0 % Eosinophils (%) (Auto) 9.6 H 0.0-7.0 % Basophils (%) (Auto) 0.8 0.0-2.0 % Neutrophils # (Auto) 11.9 H 1.6-8.6 10 ^3/uL Lymphocytes # (Auto) 5.9 H 0.4-5.4 10 ^3/uL Monocytes # (Auto) 1.1 0-1.3 10 ^3/uL Eosinophils # (Auto) 2.0 H 0-0.8 10 ^3/uL Basophils # (Auto) 0.2 0-0.2 10 ^3/uL Nucleated Red Blood Cells 0.0 % Sodium Level 134 L 136-145 mmol/L Potassium Level 4.3 3.5-5.1 mmol/L Chloride Level 105 98-107 mmol/L Carbon Dioxide Level 19 L 20-31 mmol/L Anion Gap 10 5-15 Blood Urea Nitrogen 19 9-23 mg/dL Creatinine 1.70 H 0.550-1.02 mg/dL Glomerular Filtration Rate Calc 35 >90 mL/min BUN/Creatinine Ratio 11.2 10.0-20.0 Serum Glucose 245 H 74-106 mg/dL Lactic Acid Level 1.6 0.4-2.0 mmol/L Calcium Level 9.9 8.7-10.4 mg/dL Total Bilirubin 0.4 0.2-1.0 mg/dL Aspartate Amino Transferase (AST) 16 13-40 U/L Alanine Aminotransferase (ALT) 20 7-40 U/L Alkaline Phosphatase 154 H 46-116 U/L Troponin I High Sensitivity 3 L </=34 ng/L B-Type Natriuretic Peptide 16.43 0-100 pg/mL Total Protein 8.0 5.7-8.2 g/dL Albumin 4.3 3.2-4.8 g/dL Blood Gas Specimen Type Arterial Blood Gas Sample Site Left radial Blood Gas Patient Temperature 37.0 Arterial Blood Date Drawn [id number] Arterial Blood pH 7.279 L 7.350-7.450 Arterial Blood Partial Pressure CO2 48.6 H 32.0-45.0 mmHg Arterial Blood Partial Pressure O2 105.1 83.0-108.0 mmHg Arterial Blood HCO3 22.3 21.0-28.0 mmol/L Arterial Blood Oxygen Saturation 97.7 94.0-98.0 % Arterial Blood Base Excess -4.7 L -2.0-3.0 mmol/L Arterial Blood Oxyhemoglobin 96.3 94.0-98.0 % Arterial Blood Carboxyhemoglobin 0.9 0.5-1.5 % Arterial Blood Methemoglobin 0.5 0.0-1.5 % Shon Test Yes Blood Gas Total Hemoglobin 13.40 12.0-16.0 g/dL Blood Gas Liter Flow 4.00 Blood Gas Modality Nasal cannula FiO2 % 36.0 Current Medications Medications (Trade) Dose Ordered Sig/Delio Route Start Time Stop Time Status Last Admin Dexamethasone Sodium Phosphate (Decadron Injection) 10 mg ONCE ONCE IM 08/22/24 04:45 08/22/24 04:49 DC 08/22/24 04:51 Albuterol (Ventolin Medneb) 5 mg ONCE ONCE NEB 08/22/24 05:30 08/22/24 05:31 DC 08/22/24 05:43 Ipratropium [place] (Atrovent Medneb) 0.5 mg ONCE ONCE NEB 08/22/24 05:30 08/22/24 05:31 DC 08/22/24 05:43 Magnesium Sulfate/ Dextrose 100 ml @ 100 mls/hr Q1H IV 08/22/24 04:15 08/22/24 06:17 DC 08/22/24 06:29 Time of 1ST Reevaluation: 05:08 Reevaluation 1ST: Unchanged Patient Education/Counseling: Diagnosis, Treatment, Prognosis Family Education/Counseling: No Family Present Departure 1 Departure Time of Disposition: 06:00 Impression: Primary Impression: Asthma exacerbation Disposition: ADMITTED INPATIENT Condition: Serious Critical Care Note Critical Care Time?: No Stability Stability form required: No I personally scribed for FER YANES MD ([email or web address]) on 08/22/24 at 04:52. Electronically submitted by Yana Chou ([email or web address]). FER YANES MD Aug 22, 2024 04:52
[2024-08-22 05:01] VITALS: PULSE 175; RESP 26; O2SAT 95
--- NOTE | 2024-08-22 05:12 | DVH ---
EXAM: XY CHEST XRAY 1 VIEW HISTORY: Shortness of breath COMPARISON: XY CHEST XRAY 1 VIEW on DOS: 05/23/24, XY CHEST PORTABLE on DOS: 05/22/24 TECHNIQUE: Portable AP view of the chest was performed. FINDINGS: No pneumothorax, consolidative infiltrates, or pulmonary edema. The heart is not enlarged. There is t horacic degenerative disc disease. There is abundant overlying adipose tissue. IMPRESSION: Obesity without evidence of acute intrathoracic process.
[2024-08-22 05:16] LABS: Base Excess -4.7 mmol/L (-2.0-3.0)
[2024-08-22 05:39] LABS: Basophils # (auto) 0.2 10 ^3/uL (0-0.2); Hemoglobin 12.5 g/dL (12.2-16.2)
[2024-08-22 05:42] LABS: Basophils % (auto) 0.8 % (0.0-2.0); Eosinophils % (auto) 9.6 % (0.0-7.0); Hematocrit 38.7 % (36.0-46.0); Lymphocytes # (auto) 5.9 10 ^3/uL (0.4-5.4); Mean Corpuscular Hemoglobin 26.7 pg (28.0-32.0); Mean Corpuscular Hgb Conc. 32.2 g/dL (32.0-36.0); Mean Corpuscular Volume 82.8 fL (80.0-100.0); Monocytes # (auto) 1.1 10 ^3/uL (0-1.3); Monocytes % (auto) 5.3 % (0.0-12.0); Neutrophils # (auto) 11.9 10 ^3/uL (1.6-8.6); Neutrophils % (auto) 56.3 % (37.0-80.0); Platelet Count (auto) 273 10^3/uL (140-450); Red Blood Cells 4.68 10^6/uL (4.0-5.20); Red Cell Distribution Width 15.8 % (11.8-14.3); White Blood Cell 21.1 10^3/uL (4.4-10.8)
[2024-08-22] MEDS: IPRATROPIUM BROM 0.5 MG/2.5ML INH SOL NEB ONE (05:43)
[2024-08-22] MEDS: ALBUTEROL SULF 2.5 MG/0.5ML(0.5%) NEB SOLN NEB ONE (05:43)
[2024-08-22 06:16] LABS: Alanine Aminotransferase 20 U/L (7-40); Albumin 4.3 g/dL (3.2-4.8); Anion Gap 10 (5-15); Aspartate Aminotransferase 16 U/L (13-40); BUN/Creatinine Ratio 11.2 (10.0-20.0); Blood Urea Nitrogen 19 mg/dL (9-23); Calcium 9.9 mg/dL (8.7-10.4); Chloride 105 mmol/L (98-107); Potassium 4.3 mmol/L (3.5-5.1)
[2024-08-22 06:17] LABS: Bilirubin, Total 0.4 mg/dL (0.2-1.0)
[2024-08-22 06:25] LABS: Alkaline Phosphatase 154 U/L (46-116); Carbon Dioxide 19 mmol/L (20-31); Glucose 245 mg/dL (74-106); Sodium 134 mmol/L (136-145)
[2024-08-22 08:17] LABS: Rapid Influenza A Negative (Negative); Rapid Influenza B Negative (Negative)
[2024-08-22 08:18] LABS: COVID19 ANTIGEN SOFIA FIA NEGATIVE (NEGATIVE)
[2024-08-22] MEDS: cefTRIAXone 1GM/50ML D5W 50 ML IV ONE (11:09)
--- NOTE | 2024-08-22 11:56 | ECG ---
[facility] Test Date: 2024-08-22 Test Time: 04:45:17 Pat Name: KURT BRUNER Department: ED Room: [address] [place] [address] Gender: F Patient Accounts Coordinator: LUIZ : 1965 Requested By: FER YANES Order Number: [id number] Reading MD: Wolfgang Thompson Measurements Intervals [place] Rate: 83 P: 82 MT: 152 QRS: 67 QRSD: 95 T: 66 QT: 396 QTc: 466 Interpretive Statements Sinus rhythm Electronically Signed On 08-22-2024 20:58:15 PDT by Wolfgang Thompson Please click the below link to view image of tracing.
[2024-08-22] MEDS: AZITHROMYCIN 500MG/ 250ML 250 ML IV ONE (12:18)
[2024-08-22] MEDS: InsuLIN REG 1unit/0.01ml Soln (100units/ml) IV ONE (13:11)
[2024-08-22] MEDS ORDERED: HYDROcodone-ACET 5/325MG TAB PO PRN (15:45)
[2024-08-22] MEDS ORDERED: ACETAMINOPHEN 325 MG TAB PO PRN (15:45)
[2024-08-22] MEDS ORDERED: ONDANSETRON HCL 4 MG/2 ML VIAL IV PRN (15:45)
[2024-08-22] MEDS ORDERED: DEXTROSE (50%) 50ML SYRG IV PRN (15:45)
--- NOTE | 2024-08-22 15:56 | DVHHP2 ---
History of Present Illness Reason for Visit: SOB History of Present Illness Tricia Darden is a 59-year-old female with past medical history of clamped fibroids, diabetes, asthma, CHF, CKD 3 who presents to the ED with shortness of breath x2 days. Patient reports that she was working at [employer] and was typing at the time the shortness of breath occurred. Patient denies any recent sick contacts, chest pain, abdominal pain, nausea, vomiting, diarrhea, lightheadedness, weakness, dizziness, recent trauma or injury, recent travels, or urinary symptoms. Cardiovascular: CHF Pulmonary: Asthma Renal/: Chronic renal insuff Endocrine: Diabetes Past Medical History Clamped fibroids Past Surgical History: Other (Right shoulder replacement), Tubal Ligation Family History: Cancer, Other (Mom with kidney disease and dad with prostate cancer) Smoke: No ALCOHOL: none Drugs: None Lives: with Family Domestic Violence: Neg Review of Systems Respiratory: Shortness of breath Allergies: Coded Allergies: Iodine (Verified Allergy, Unknown, 05/22/24) Exam Vital Signs Vital Signs Date Time Temp Pulse Resp B/P (MAP) Pulse Ox O2 Delivery O2 Flow Rate FiO2 08/22/24 13:00 89 138/84 (102) 97 08/22/24 08:12 Nasal Cannula* 4 36 08/22/24 08:12 98.1 22 98.1 General Appearance: Alert, Oriented X3, Cooperative, mild distress HEENT: Atraumatic, PERRLA, EOMI, Mucous membr. moist/pink Respiratory: Normal air movement Cardiovascular: Normal S1, Normal S2, No murmurs Abdominal: Normal bowel sounds, Soft, No tenderness, No hepatospenomegaly, No masses Extremities: No clubbing, No cyanosis, No edema, Normal pulses Skin: No significant lesion Neuro: Normal speech, Strength at 5/5 X4 ext, Normal tone, Sensation intact Psych/Mental Status: Mental status NL, Mood NL Labs/Xrays Labs Test 08/22/24 06:30 08/22/24 05:29 08/22/24 05:08 Range/Units Influenza Type A Antigen Negative Negative Influenza Type B Antigen Negative Negative SARS-CoV-2 Antigen (Rapid) Negative NEGATIVE White Blood Count 21.1 H 4.4-10.8 10^3/uL Red Blood Count 4.68 4.0-5.20 10^6/uL Hemoglobin 12.5 12.2-16.2 g/dL Hematocrit 38.7 36.0-46.0 % Mean Corpuscular Volume 82.8 80.0-100.0 fL Mean Corpuscular Hemoglobin 26.7 L 28.0-32.0 pg Mean Corpuscular Hemoglobin Concent 32.2 32.0-36.0 g/dL Red Cell Distribution Width 15.8 H 11.8-14.3 % Platelet Count 273 140-450 10^3/uL Mean Platelet Volume 8.8 6.9-10.8 fL Neutrophils (%) (Auto) 56.3 37.0-80.0 % Lymphocytes (%) (Auto) 28.0 10.0-50.0 % Monocytes (%) (Auto) 5.3 0.0-12.0 % Eosinophils (%) (Auto) 9.6 H 0.0-7.0 % Basophils (%) (Auto) 0.8 0.0-2.0 % Neutrophils # (Auto) 11.9 H 1.6-8.6 10 ^3/uL Lymphocytes # (Auto) 5.9 H 0.4-5.4 10 ^3/uL Monocytes # (Auto) 1.1 0-1.3 10 ^3/uL Eosinophils # (Auto) 2.0 H 0-0.8 10 ^3/uL Basophils # (Auto) 0.2 0-0.2 10 ^3/uL Nucleated Red Blood Cells 0.0 % Sodium Level 134 L 136-145 mmol/L Potassium Level 4.3 3.5-5.1 mmol/L Chloride Level 105 98-107 mmol/L Carbon Dioxide Level 19 L 20-31 mmol/L Anion Gap 10 5-15 Blood Urea Nitrogen 19 9-23 mg/dL Creatinine 1.70 H 0.550-1.02 mg/dL Glomerular Filtration Rate Calc 35 >90 mL/min BUN/Creatinine Ratio 11.2 10.0-20.0 Serum Glucose 245 H 74-106 mg/dL Lactic Acid Level 1.6 0.4-2.0 mmol/L Calcium Level 9.9 8.7-10.4 mg/dL Total Bilirubin 0.4 0.2-1.0 mg/dL Aspartate Amino Transferase (AST) 16 13-40 U/L Alanine Aminotransferase (ALT) 20 7-40 U/L Alkaline Phosphatase 154 H 46-116 U/L Troponin I High Sensitivity 3 L </=34 ng/L B-Type Natriuretic Peptide 16.43 0-100 pg/mL Total Protein 8.0 5.7-8.2 g/dL Albumin 4.3 3.2-4.8 g/dL Blood Gas Specimen Type Arterial Blood Gas Sample Site Left radial Blood Gas Patient Temperature 37.0 Arterial Blood Date Drawn [id number] Arterial Blood pH 7.279 L 7.350-7.450 Arterial Blood Partial Pressure CO2 48.6 H 32.0-45.0 mmHg Arterial Blood Partial Pressure O2 105.1 83.0-108.0 mmHg Arterial Blood HCO3 22.3 21.0-28.0 mmol/L Arterial Blood Oxygen Saturation 97.7 94.0-98.0 % Arterial Blood Base Excess -4.7 L -2.0-3.0 mmol/L Arterial Blood Oxyhemoglobin 96.3 94.0-98.0 % Arterial Blood Carboxyhemoglobin 0.9 0.5-1.5 % Arterial Blood Methemoglobin 0.5 0.0-1.5 % Shon Test Yes Blood Gas Total Hemoglobin 13.40 12.0-16.0 g/dL Blood Gas Liter Flow 4.00 Blood Gas Modality Nasal cannula FiO2 % 36.0 EXAM: XY CHEST XRAY 1 VIEW HISTORY: Shortness of breath COMPARISON: XY CHEST XRAY 1 VIEW on DOS: 05/23/24, XY CHEST PORTABLE on DOS: 05/22/24 TECHNIQUE: Portable AP view of the chest was performed. FINDINGS: No pneumothorax, consolidative infiltrates, or pulmonary edema. The heart is not enlarged. There is thoracic degenerative disc disease. There is abundant overlying adipose tissue. IMPRESSION: Obesity without evidence of acute intrathoracic process. Assessment/Plan Assessment/Plan Assessment Acute on chronic COPD exacerbation Acute hypoxic respiratory failure Leukocytosis likely secondary to pneumonia Rule out sepsis History of diabetes History of asthma History of CKD History of CHF History of clamp fibroids History of right shoulder replacement History of tubal ligation Plan Admit to med surge Supportive oxygen D-dimer Chest x-ray Hemoglobin A1c ISS and Accu-Cheks IV antibiotics-ceftriaxone + azithromycin Steroids Duo nebs Mag level Decadron given ED Blood cultures EKG ABG Lactic level COVID negative Flu negative RSV Troponin negative UA BNP Urine culture Home medications reconciled DVT prophylaxis-Lovenox PUD prophylaxis-famotidine Discussed plan of care with patient and nurse Plan discussed with: Patient Date of Service: Aug 22, 2024 Billing Provider: YOVANA FLORES Common Visit Codes: [id number] INP/OBS CARE (HIGH) YOVANA FLORES Aug 22, 2024 15:56
[2024-08-22] MEDS ORDERED: ENOXAPARIN SOD 30 MG/0.3 ML SYRINGE SC SCH (16:00)
[2024-08-22 16:04] VITALS: BP 138/84; PULSE 89; RESP 22; TEMP 98.1; O2SAT 97
[2024-08-22] MEDS: FAMOTIDINE (10MG/ML) 2ML VL IV SCH (16:29)
[2024-08-22] MEDS: ENOXAPARIN SOD 40 MG/0.4 ML SYRINGE SC SCH (16:29)
[2024-08-22] MEDS: ACCU-CHEK COMFORT CURVE STRIP VI SCH (17:00)
[2024-08-22] MEDS: InsuLIN REG 1unit/0.01ml Soln (100units/ml) SC SCH (17:34)
[2024-08-22] MEDS: methylPREDNISolone SOD SUCC 40 MG/ML VL IV SCH (22:14)
[2024-08-23] VITALS (9 sets, daily range): BP systolic 110–154; BP diastolic 50–85; PULSE 75–91; RESP 18–20; TEMP 97.6–98.2; O2SAT 93–98
[2024-08-23] MEDS ORDERED: EMPA1TAB PO (06:01)
[2024-08-23] MEDS ORDERED: LOPE-62 PO (06:01)
[2024-08-23] MEDS ORDERED: ALBU0.084 NEB (06:01)
[2024-08-23] MEDS ORDERED: FINE10TA PO (06:01)
[2024-08-23] MEDS ORDERED: FLUT1AER3 PO (06:01)
[2024-08-23] MEDS ORDERED: INSU1INJ13 SC (06:01)
[2024-08-23 09:28] LABS: Basophils # (auto) 0 10 ^3/uL (0-0.2); Basophils % (auto) 0.2 % (0.0-2.0); Eosinophils # (auto) 0.1 10 ^3/uL (0-0.8); Eosinophils % (auto) 0.4 % (0.0-7.0); Hematocrit 37.5 % (36.0-46.0); Hemoglobin 12.1 g/dL (12.2-16.2); Lymphocytes # (auto) 1.8 10 ^3/uL (0.4-5.4); Lymphocytes % (auto) 11.1 % (10.0-50.0); Mean Corpuscular Hemoglobin 26.8 pg (28.0-32.0); Mean Corpuscular Hgb Conc. 32.3 g/dL (32.0-36.0); Monocytes # (auto) 0.2 10 ^3/uL (0-1.3); Monocytes % (auto) 1.5 % (0.0-12.0); Neutrophils # (auto) 14.1 10 ^3/uL (1.6-8.6); Neutrophils % (auto) 86.8 % (37.0-80.0); Platelet Count (auto) 260 10^3/uL (140-450); Red Blood Cells 4.52 10^6/uL (4.0-5.20); White Blood Cell 16.3 10^3/uL (4.4-10.8)
[2024-08-23] MEDS: cefTRIAXone 1GM/50ML D5W 50 ML IV SCH (09:28)
[2024-08-23 09:45] LABS: Alanine Aminotransferase 18 U/L (7-40); Albumin 4.4 g/dL (3.2-4.8); Anion Gap 7 (5-15); Aspartate Aminotransferase 13 U/L (13-40); BUN/Creatinine Ratio 18.8 (10.0-20.0); Calcium 10.2 mg/dL (8.7-10.4); Carbon Dioxide 23 mmol/L (20-31); Chloride 102 mmol/L (98-107); Potassium 4.8 mmol/L (3.5-5.1); Total Protein 7.8 g/dL (5.7-8.2)
[2024-08-23 09:49] LABS: Alkaline Phosphatase 152 U/L (46-116); Bilirubin, Total 0.3 mg/dL (0.2-1.0); Blood Urea Nitrogen 32 mg/dL (9-23); Glucose 268 mg/dL (74-106); Sodium 132 mmol/L (136-145)
[2024-08-23] MEDS: AZITHROMYCIN 500MG/ 250ML 250 ML IV SCH (11:18)
--- NOTE | 2024-08-23 12:35 | DVHPN2 ---
Reviewed: Care Plan, H&P, Labs, Medications, Previous Orders, Radiology Changes from previous H/P or p: No Changes Respiratory: Shortness of breath Objective Vitals Vital Signs Date Time Temp Pulse Resp B/P (MAP) Pulse Ox O2 Delivery O2 Flow Rate FiO2 08/23/24 10:00 95 Room Air* 0 21 08/23/24 05:18 91 20 08/23/24 05:00 98.1 143/74 (97) 98.1 Intake/Output Intake and Output 08/23/24 07:00 Intake Total 300 ml Balance 300 ml Intake Oral 0 ml IV Total 300 ml Medications Current Medications Medications Dose Ordered Sig/Delio Route Start Time Stop Time Status Last Admin Dose Admin Azithromycin 250 ml @ 125 mls/hr DAILY IV 08/23/24 10:00 08/23/24 11:18 125 MLS/HR Ceftriaxone Sodium 50 ml @ 100 mls/hr DAILY@09 IV 08/23/24 09:00 08/23/24 09:28 100 MLS/HR Acetaminophen/ Hydrocodone Bitart 1 tab Q4HP PRN PO 08/22/24 15:45 Ondansetron HCl 4 mg Q4HP PRN IV 08/22/24 15:45 Acetaminophen 650 mg Q6HP PRN PO 08/22/24 15:45 Diagnostic Test (Pha) 1 strip ACHS 08/22/24 17:00 08/23/24 05:48 1 STRIP Insulin Human Regular ACHS SC 08/22/24 17:00 08/23/24 05:55 3 UNITS Dextrose 50 ml UD PRN IV 08/22/24 15:45 Methylprednisolone Sodium Succinate 40 mg Q8HR IV 08/22/24 22:00 08/23/24 05:48 40 MG Famotidine 20 mg DAILY IV 08/22/24 15:45 08/23/24 09:29 20 MG Enoxaparin Sodium 40 mg DAILY SC 08/22/24 16:07 08/22/24 16:29 40 MG Enoxaparin Sodium 30 mg DAILY SC 08/22/24 16:00 UNV Laboratory Results Laboratory Tests 08/23/24 09:03 Chemistry Test 08/23/24 09:03 Albumin 4.4 g/dL (3.2-4.8) Calcium Level 10.2 mg/dL (8.7-10.4) Total Protein 7.8 g/dL (5.7-8.2) Coagulation Test 08/22/24 15:49 D-Dimer, Quantitative 2.15 mg/L FEU (0.0-0.49) H LFT Test 08/23/24 09:03 Alanine Aminotransferase (ALT) 18 U/L (7-40) Alkaline Phosphatase 152 U/L (46-116) H Aspartate Amino Transferase (AST) 13 U/L (13-40) Total Bilirubin 0.3 mg/dL (0.2-1.0) Microbiology Microbiology Date/Time Source Procedure Growth Status 08/22/24 07:36 Blood Blood Culture - Preliminary NO GROWTH AFTER 24 HOURS OF INCUBATION. Resulted Labs and/or images reviewed: Labs reviewed by me, Image(s) reviewed by me Assessment/Plan Assessment/Plan Acute hypoxic respiratory failure: Oxygen by nasal cannula [place] [id number] possibly secondary to pneumonia: Blood cultures pending Possible community-acquired pneumonia: Rocephin azithromycin Acute asthma exacerbation: Solu-Medrol, med neb History of congestive heart failure Uncontrolled diabetes with glucose 340, A1c 8.2: Insulin sliding scale Elevated D-dimer 2.11 venous ultrasound ordered to rule out DVT, V/Q scan ordered to rule out PE, CT chest angiogram could not be ordered because of creatinine 1.70 Acute kidney injury with a elevated BUN creatinine, 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 Jay Naranjo test negative Flu test neg [place] requested transfer Time spent 50 minutes Advanced care planning time 20 minutes Patient is full code Patient not stable for transfer to [facility] as patient is being worked up for elevated D-dimer to rule out DVT and PE and awaiting cardiology consultation and nephrology consult Plan discussed with: Patient My Orders Orders - MAGO LEWIS MD Procedure Category Date Status Time Nm Vq Scan NM 08/23/24 Verified 12:14 Bilat Lower Dvt US 08/23/24 Verified 12:14 Date of Service: Aug 23, 2024 Billing Provider: MAGO LEWIS MD Common Visit Codes: [id number] INP/OBS CARE(HIGH) Secondary Visit Codes: [id number] CARE PLAN 30 MINUTES MAGO LEWIS MD Aug 23, 2024 12:35
--- NOTE | 2024-08-23 14:45 | DVH ---
NUCLEAR MEDICINE VENTILATION/PERFUSION LUNG SCAN. INDICATION: Elevated D-dimer rule out PULMONARY EMBOLISM TECHNIQUE: Following intravenous demonstration of 6 millicuries of technetium 99m MAA, and inhalati on of 40 mCi of Tc 99m DTPA scintigrams were obtained in multiple projections of the lungs. FINDINGS: There is normal uptake of radionuclide on both the ventilation and perfusion portions of the examinat ion. No mismatched perfusion defects are demonstrated. Uptake is normally homogeneous. IMPRESSION: Low probability for PE.
--- NOTE | 2024-08-23 16:02 | DVH ---
Lower extremity venous duplex Clinical History: Rule out DVT Comparison: US BILAT LOWER DVT on DOS: 05/23/24 Findings: Duplex Doppler evaluation of the deep venous systems of the bilateral lower extremity from the common femoral veins to the popliteal veins including color Doppler and spectral/pulsed waveform analysis w as performed. RIGHT SIDE: The common femoral vein demonstrates appropriate compressibility and waveform variability. There is compressibility/patency of the great saphenous vein at the proximal thigh. The femoral vein demonstrates appropriate compressibility and waveform variability. The popliteal vein demonstrates appropriate compressibility and waveform variability. LEFT SIDE: The common femoral vein demonstrates appropriate compressibility and waveform variability. There is compressibility/patency of the great saphenous vein at the proximal thigh. The femoral vein demonstrates appropriate compressibility and waveform variability. The popliteal vein demonstrates appropriate compressibility and waveform variability. Impression: 1. No evidence for deep vein thrombosis.
--- NOTE | 2024-08-23 17:14 | DVHINCON2 ---
ELIESER FLEMING [facility] 08/23/24 1714: Date Seen: Aug 23, 2024 Referring Physician MD Jamarcus Reason for Consultation Shortness of breath History of Present Illness This is a 59-year-old female patient who presents to emergency room with chief complaint of shortness of breath and cough for approximately five days prior to emergency room arrival. Cardiology has been consulted at this time for shortness of breath. Initial twelve lead electrocardiogram reveals normal sinus rhythm without any significant ST segment changes. Initial troponin level was negative. 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 Past Medical History Past medical history reviewed. No other significant than mentioned above. Past Surgical History Right shoulder surgery Cholecystectomy Tubal ligation Family History: Patient reports no known family medical history. Family History Family history reviewed. Social History Denies the use of tobacco, alcohol or illicit drugs. Allergies: Coded Allergies: Iodine (Verified Allergy, Unknown, 05/22/24) Home Meds Reported Medications Insulin Degludec (Tresiba Flextouch) 200 Unit/Ml Inj, 30 UNIT SC DAILY 08/23/24 Loperamide HCl (Loperamide Hydrochloride) 2 Mg Cap, PO 08/23/24 Empagliflozin (Jardiance) 10 Mg Tab, 1 TAB PO DAILY 08/23/24 Albuterol Sulfate (Albuterol Sulfate) 0.083 % Neb, 1 VIAL NEB Q6HPRN PRN for wheezing 08/23/24 Finerenone (Kerendia) 10 Mg Tab, 1 TAB PO DAILY 08/23/24 Volkavzzway-Mgnmhnbvzzrs-Cdtdc (Trelegy Ellipta 100-62.5-25 Mcg/INH) 1 Aer Aer, 1 PO DAILY 08/23/24 Insulin Degludec (Insulin Degludec) 100 Unit/Ml Inj, 36 UNIT SC, INJ 05/22/24 Insulin Aspart (Novolog Relion) 100 Unit/Ml Inj, 36 UNIT SC, INJ 05/22/24 Ergocalciferol (Vitamin D) 50,000 Unit Cap, 1 CAP PO QWEEKLY 05/22/24 Losartan Potassium (Losartan Potassium) 25 Mg Tab, 1 TAB DAILY 05/22/24 Home Meds Home medications reviewed. Current Medications Current Medications Medications (Trade) Dose Ordered Sig/Delio Route PRN Reason Start Time Stop Time Status Last Admin Azithromycin 250 ml @ 125 mls/hr DAILY IV 08/23/24 10:00 08/23/24 11:18 Ceftriaxone Sodium 50 ml @ 100 mls/hr DAILY@09 IV 08/23/24 09:00 08/23/24 09:28 Methylprednisolone Sodium Succinate (Solu Medrol) 40 mg Q8HR IV 08/22/24 22:00 08/23/24 15:09 DC 08/23/24 05:48 Methylprednisolone Sodium Succinate (Solu Medrol) 40 mg Q8HR IV 08/23/24 22:00 Review of Systems Constitutional: No symptom reported Ears, Nose, & Throat: No symptom reported Eyes: No symptom reported Neurological: No symptoms reported Pulmonary/Respiratory: Shortness of breath, cough Cardiovascular: No symptom reported Gastrointestinal: No symptom reported Genitourinary: No symptom reported Musculoskeletal: No symptom reported Skin: No symptom reported Psychiatric: No symptom reported Endocrine: No symptom reported Hematologic/Lymphatic: No symptom reported Vital Signs Vital Signs Date Time Temp Pulse Resp B/P (MAP) Pulse Ox O2 Delivery O2 Flow Rate FiO2 08/23/24 13:00 98.1 85 18 141/75 (97) 95 98.1 08/23/24 10:00 Room Air* 0 21 Physical Exam General Appearance: Cooperative. Morbid obesity Pulmonary/Respiratory: Clear, bilateral breaths sounds. Cardiovascular/Chest: Regular rate and rhythm. Peripheral Pulses: 2+ Radial (R). 2+ Radial (L). 2+ Pedal (R). 2+ Pedal (L) Abdominal Exam: Normal bowel sounds. Ankle Exam: Negative ankle edema Lower extremities: Negative lower extremity edema Neuro/Mental Status: A/OX4, coherent. Thoughts/Psych: Normal thought pattern. Appropriate mood and affect. Good judgment and insight. Appearance: No acute distress. Skin Exam: Normal inspection. Normal color. Warm and dry. Labs/Diagnostic Data Labs Test 08/23/24 12:15 08/23/24 09:03 08/22/24 15:49 08/22/24 06:30 Range/Units POC Glucose 355 H 70-106 mg/dl White Blood Count 16.3 H 4.4-10.8 10^3/uL Red Blood Count 4.52 4.0-5.20 10^6/uL Hemoglobin 12.1 L 12.2-16.2 g/dL Hematocrit 37.5 36.0-46.0 % Mean Corpuscular Volume 83.0 80.0-100.0 fL Mean Corpuscular Hemoglobin 26.8 L 28.0-32.0 pg Mean Corpuscular Hemoglobin Concent 32.3 32.0-36.0 g/dL Red Cell Distribution Width 16.0 H 11.8-14.3 % Platelet Count 260 140-450 10^3/uL Mean Platelet Volume 9.1 6.9-10.8 fL Neutrophils (%) (Auto) 86.8 H 37.0-80.0 % Lymphocytes (%) (Auto) 11.1 10.0-50.0 % Monocytes (%) (Auto) 1.5 0.0-12.0 % Eosinophils (%) (Auto) 0.4 0.0-7.0 % Basophils (%) (Auto) 0.2 0.0-2.0 % Neutrophils # (Auto) 14.1 H 1.6-8.6 10 ^3/uL Lymphocytes # (Auto) 1.8 0.4-5.4 10 ^3/uL Monocytes # (Auto) 0.2 0-1.3 10 ^3/uL Eosinophils # (Auto) 0.1 0-0.8 10 ^3/uL Basophils # (Auto) 0 0-0.2 10 ^3/uL Nucleated Red Blood Cells 0.0 % Sodium Level 132 L 136-145 mmol/L Potassium Level 4.8 3.5-5.1 mmol/L Chloride Level 102 98-107 mmol/L Carbon Dioxide Level 23 20-31 mmol/L Anion Gap 7 5-15 Blood Urea Nitrogen 32 #H 9-23 mg/dL Creatinine 1.70 H 0.550-1.02 mg/dL Glomerular Filtration Rate Calc 35 >90 mL/min BUN/Creatinine Ratio 18.8 10.0-20.0 Serum Glucose 268 H 74-106 mg/dL Calcium Level 10.2 8.7-10.4 mg/dL Total Bilirubin 0.3 0.2-1.0 mg/dL Aspartate Amino Transferase (AST) 13 13-40 U/L Alanine Aminotransferase (ALT) 18 7-40 U/L Alkaline Phosphatase 152 H 46-116 U/L Total Protein 7.8 5.7-8.2 g/dL Albumin 4.4 3.2-4.8 g/dL D-Dimer, Quantitative 2.15 H 0.0-0.49 mg/L FEU Influenza Type A Antigen Negative Negative Influenza Type B Antigen Negative Negative SARS-CoV-2 Antigen (Rapid) Negative NEGATIVE Test 08/22/24 05:29 08/22/24 05:08 Range/Units Hemoglobin A1c 8.2 H <5.7 % A1C Lactic Acid Level 1.6 0.4-2.0 mmol/L Troponin I High Sensitivity 3 L </=34 ng/L B-Type Natriuretic Peptide 16.43 0-100 pg/mL Blood Gas Specimen Type Arterial Blood Gas Sample Site Left radial Blood Gas Patient Temperature 37.0 Arterial Blood Date Drawn [id number] Arterial Blood pH 7.279 L 7.350-7.450 Arterial Blood Partial Pressure CO2 48.6 H 32.0-45.0 mmHg Arterial Blood Partial Pressure O2 105.1 83.0-108.0 mmHg Arterial Blood HCO3 22.3 21.0-28.0 mmol/L Arterial Blood Oxygen Saturation 97.7 94.0-98.0 % Arterial Blood Base Excess -4.7 L -2.0-3.0 mmol/L Arterial Blood Oxyhemoglobin 96.3 94.0-98.0 % Arterial Blood Carboxyhemoglobin 0.9 0.5-1.5 % Arterial Blood Methemoglobin 0.5 0.0-1.5 % Shon Test Yes Blood Gas Total Hemoglobin 13.40 12.0-16.0 g/dL Blood Gas Liter Flow 4.00 Blood Gas Modality Nasal cannula FiO2 % 36.0 Microbiology Date/Time Source Procedure Growth Status 08/22/24 07:36 Blood Blood Culture - Preliminary NO GROWTH AFTER 24 HOURS OF INCUBATION. Resulted Assessment Acute hypoxic respiratory failure with COPD exacerbation Hypertension Dyslipidemia Rule out pulmonary embolism CVA x2 without residual deficit Type 2 diabetes mellitus Chronic kidney disease Asthma Obesity Plan/Recommendation We will continue with the following plan/recommendations (Dr. Buck): Patient seen and examined at bedside with . Transthoracic echocardiogram from 05/23/2024 reveals EF 60%. Given patient's clinical presentation, negative troponin level and unremarkable twelve lead electrocardiogram, doubt shortness of breath is cardiogenic in nature. Patient presents with respiratory symptoms including shortness of breath, cough, and sputum production. D-dimer was noted to be elevated. The patient unable to undergo CT angiogram given elevated creatinine level. Patient underwent a V/Q scan in which report shows low probability for PE. Patient likely with COPD exacerbation. Consider pulmonary consultation. There is no further inpatient cardiac workup indicated at this time. Thank you for allowing us to care for this patient. Please call with any questions or concerns. Critical care time spent: 43 minutes This medical document was created using an electronic medical record system with voice recognition software and computerized dictation system. Although this document has been carefully reviewed, there might still be some phonetic and typographical errors. Occasional wrong-word or ``sound-alike substitutions may have occurred due to the inherent limitations of voice recognition software. These areas are purely typographical due to imperfections of the software programs and do not reflect any compromise in the patient's medical care. Please read the chart carefully and recognize, using context, where these substitutions have occurred. Plan discussed with: Patient NYHA Physical activity limitations: NA Date of Service: Aug 23, 2024 Billing Provider: ELIESER FLEMING [employer] Cardiology Common Codes: [id number] INP/OBS CARE (High) Cardiology Consultation Codes: [id number] CONSULT <45MIN GEOVANNI BUCK MD 08/24/24 1250: Family History: Patient reports no known family medical history. Allergies: Coded Allergies: Iodine (Verified Allergy, Unknown, 05/22/24) Home Meds Reported Medications Insulin Degludec (Tresiba Flextouch) 200 Unit/Ml Inj, 30 UNIT SC DAILY 08/23/24 Loperamide HCl (Loperamide Hydrochloride) 2 Mg Cap, PO 08/23/24 Empagliflozin (Jardiance) 10 Mg Tab, 1 TAB PO DAILY 08/23/24 Albuterol Sulfate (Albuterol Sulfate) 0.083 % Neb, 1 VIAL NEB Q6HPRN PRN for wheezing 08/23/24 Finerenone (Kerendia) 10 Mg Tab, 1 TAB PO DAILY 08/23/24 Ongmqvgxmfc-Mdtclikgfrgc-Swdtg (Trelegy Ellipta 100-62.5-25 Mcg/INH) 1 Aer Aer, 1 PO DAILY 08/23/24 Insulin Degludec (Insulin Degludec) 100 Unit/Ml Inj, 36 UNIT SC, INJ 05/22/24 Insulin Aspart (Novolog Relion) 100 Unit/Ml Inj, 36 UNIT SC, INJ 05/22/24 Ergocalciferol (Vitamin D) 50,000 Unit Cap, 1 CAP PO QWEEKLY 05/22/24 Losartan Potassium (Losartan Potassium) 25 Mg Tab, 1 TAB DAILY 05/22/24 Plan/Recommendation PT SEEN WITH CV WORKERS COMPENSATION EXAMINER AGREE WITH WORKERS COMPENSATION EXAMINER ASSESSMENT AND PLAN PERSONALLY DISCUSSED WITH PATIENT normal echo in may 2024 negative vq and venous US signing off outpt cv eval Plan discussed with: Patient ELIESER FLEMING Aug 23, 2024 17:14 GEOVANNI BUCK MD Aug 24, 2024 12:50
--- NOTE | 2024-08-23 17:29 | DVHINCON2 ---
Date of service: Aug 23, [address] Ricketst Reason for Consultation Acute kidney injury History of Present Illness Patient is 59-year-old obese female with past medical history of diabetes mellitus, hypertension, and COPD is admitted shortness of breath and hypoxemia. On admission patient found to have elevated BUN and creatinine nephrology is consulted for acute kidney injury Past Medical History Diabetes mellitus, hypertension, COPD Allergies: Coded Allergies: Iodine (Verified Allergy, Unknown, 05/22/24) Home Meds Reported Medications Insulin Degludec (Tresiba Flextouch) 200 Unit/Ml Inj, 30 UNIT SC DAILY 08/23/24 Loperamide HCl (Loperamide Hydrochloride) 2 Mg Cap, PO 08/23/24 Empagliflozin (Jardiance) 10 Mg Tab, 1 TAB PO DAILY 08/23/24 Albuterol Sulfate (Albuterol Sulfate) 0.083 % Neb, 1 VIAL NEB Q6HPRN PRN for wheezing 08/23/24 Finerenone (Kerendia) 10 Mg Tab, 1 TAB PO DAILY 08/23/24 Wkdwfackyjm-Cimplioognve-Vekqj (Trelegy Ellipta 100-62.5-25 Mcg/INH) 1 Aer Aer, 1 PO DAILY 08/23/24 Insulin Degludec (Insulin Degludec) 100 Unit/Ml Inj, 36 UNIT SC, INJ 05/22/24 Insulin Aspart (Novolog Relion) 100 Unit/Ml Inj, 36 UNIT SC, INJ 05/22/24 Ergocalciferol (Vitamin D) 50,000 Unit Cap, 1 CAP PO QWEEKLY 05/22/24 Losartan Potassium (Losartan Potassium) 25 Mg Tab, 1 TAB DAILY 05/22/24 Current Medications Current Medications Medications (Trade) Dose Ordered Sig/Delio Route PRN Reason Start Time Stop Time Status Last Admin Azithromycin 250 ml @ 125 mls/hr DAILY IV 08/23/24 10:00 08/23/24 11:18 Methylprednisolone Sodium Succinate (Solu Medrol) 40 mg Q8HR IV 08/23/24 22:00 08/24/24 06:18 Family History: Patient reports no known family medical history. Review of Systems All 12 item review of systems reviewed with the patient nonsignificant except what is mentioned H&P Exam Vital Signs/I&O Vital Sign Date Time Temp Pulse Resp B/P (MAP) Pulse Ox O2 Delivery O2 Flow Rate FiO2 4/12/25 08:00 Room Air* 0 21 08/24/24 05:00 97.4 77 18 129/75 (13) 94 97.4 Intake and Output 08/23/24 08/24/24 19:00 07:00 Intake Total 1750 ml 400 ml Output Total 1000 ml Balance 750 ml 400 ml Intake Oral 1000 ml 400 ml IV Total 750 ml Output Urine Total 1000 ml # Voids 4 Physical Exam Obese female Moderate respiratory distress Lungs bilateral wheezing Cardiac exam regular rate and rhythm GI soft bowel sounds are present normal Extremity no clubbing cyanosis or edema Neuro nonfocal Labs/Diagnostic Data Labs/Diagnostic Data Laboratory Tests Test 08/24/24 07:25 08/24/24 06:46 08/24/24 06:28 08/24/24 06:21 Range/Units POC Glucose 370 H 401 *H 403 *H 434 *H 70-106 mg/dl Test 08/24/24 01:30 08/23/24 21:26 08/23/24 17:05 08/23/24 12:15 Range/Units Urine Color Light-yellow Yellow Urine Clarity Clear Clear Urine pH 5.0 5.0-9.0 Urine Specific [place] 1.013 1.001-1.035 Urine Protein Negative Negative Urine Ketones Negative Negative Urine Blood Negative Negative /uL Urine Nitrite Negative Negative Urine Bilirubin Negative Negative Urine Urobilinogen Normal Negative mg/dL Urine Leukocyte Esterase Negative Negative /uL Urine RBC <1 0 - 4 /hpf Urine Microscopic WBC < 1 0-5 /HPF Urine Squamous Epithelial Cells Few <5 /hpf Urine Bacteria None seen None Seen /hpf Urine Osmolality 442 mOsm/kg Urine Creatinine 69.42 30.0-125.0 mg/dL Urine Protein/Creatinine Ratio 0.10 Urine Sodium 39 L 40-220 mmol/L Urine Glucose 4+ H Normal mg/dL Urine Total Protein 7.0 1-14 mg/dL POC Glucose 285 H 381 H 355 H 70-106 mg/dl Test 08/23/24 09:03 08/23/24 05:47 08/22/24 22:04 08/22/24 17:23 Range/Units White Blood Count 16.3 H 4.4-10.8 10^3/uL Red Blood Count 4.52 4.0-5.20 10^6/uL Hemoglobin 12.1 L 12.2-16.2 g/dL Hematocrit 37.5 36.0-46.0 % Mean Corpuscular Volume 83.0 80.0-100.0 fL Mean Corpuscular Hemoglobin 26.8 L 28.0-32.0 pg Mean Corpuscular Hemoglobin Concent 32.3 32.0-36.0 g/dL Red Cell Distribution Width 16.0 H 11.8-14.3 % Platelet Count 260 140-450 10^3/uL Mean Platelet Volume 9.1 6.9-10.8 fL Neutrophils (%) (Auto) 86.8 H 37.0-80.0 % Lymphocytes (%) (Auto) 11.1 10.0-50.0 % Monocytes (%) (Auto) 1.5 0.0-12.0 % Eosinophils (%) (Auto) 0.4 0.0-7.0 % Basophils (%) (Auto) 0.2 0.0-2.0 % Neutrophils # (Auto) 14.1 H 1.6-8.6 10 ^3/uL Lymphocytes # (Auto) 1.8 0.4-5.4 10 ^3/uL Monocytes # (Auto) 0.2 0-1.3 10 ^3/uL Eosinophils # (Auto) 0.1 0-0.8 10 ^3/uL Basophils # (Auto) 0 0-0.2 10 ^3/uL Nucleated Red Blood Cells 0.0 % Sodium Level 132 L 136-145 mmol/L Potassium Level 4.8 3.5-5.1 mmol/L Chloride Level 102 98-107 mmol/L Carbon Dioxide Level 23 20-31 mmol/L Anion Gap 7 5-15 Blood Urea Nitrogen 32 #H 9-23 mg/dL Creatinine 1.70 H 0.550-1.02 mg/dL Glomerular Filtration Rate Calc 35 >90 mL/min BUN/Creatinine Ratio 18.8 10.0-20.0 Serum Glucose 268 H 74-106 mg/dL Calcium Level 10.2 8.7-10.4 mg/dL Phosphorus Level 2.7 2.4-5.1 mg/dL Magnesium Level 2.4 1.6-2.6 mg/dL Total Bilirubin 0.3 0.2-1.0 mg/dL Aspartate Amino Transferase (AST) 13 13-40 U/L Alanine Aminotransferase (ALT) 18 7-40 U/L Alkaline Phosphatase 152 H 46-116 U/L Total Protein 7.8 5.7-8.2 g/dL Albumin 4.4 3.2-4.8 g/dL Vitamin D 25-Hydroxy 90.7 30.0-100 ng/mL Parathyroid Hormone (Intact) 124.7 H 18.4-80.1 pg/mL POC Glucose 193 H 350 H 340 H 70-106 mg/dl Test 08/22/24 15:49 08/22/24 06:30 08/22/24 05:29 08/22/24 05:08 Range/Units D-Dimer, Quantitative 2.15 H 0.0-0.49 mg/L FEU Influenza Type A Antigen Negative Negative Influenza Type B Antigen Negative Negative SARS-CoV-2 Antigen (Rapid) Negative NEGATIVE White Blood Count 21.1 H 4.4-10.8 10^3/uL Red Blood Count 4.68 4.0-5.20 10^6/uL Hemoglobin 12.5 12.2-16.2 g/dL Hematocrit 38.7 36.0-46.0 % Mean Corpuscular Volume 82.8 80.0-100.0 fL Mean Corpuscular Hemoglobin 26.7 L 28.0-32.0 pg Mean Corpuscular Hemoglobin Concent 32.2 32.0-36.0 g/dL Red Cell Distribution Width 15.8 H 11.8-14.3 % Platelet Count 273 140-450 10^3/uL Mean Platelet Volume 8.8 6.9-10.8 fL Neutrophils (%) (Auto) 56.3 37.0-80.0 % Lymphocytes (%) (Auto) 28.0 10.0-50.0 % Monocytes (%) (Auto) 5.3 0.0-12.0 % Eosinophils (%) (Auto) 9.6 H 0.0-7.0 % Basophils (%) (Auto) 0.8 0.0-2.0 % Neutrophils # (Auto) 11.9 H 1.6-8.6 10 ^3/uL Lymphocytes # (Auto) 5.9 H 0.4-5.4 10 ^3/uL Monocytes # (Auto) 1.1 0-1.3 10 ^3/uL Eosinophils # (Auto) 2.0 H 0-0.8 10 ^3/uL Basophils # (Auto) 0.2 0-0.2 10 ^3/uL Nucleated Red Blood Cells 0.0 % Sodium Level 134 L 136-145 mmol/L Potassium Level 4.3 3.5-5.1 mmol/L Chloride Level 105 98-107 mmol/L Carbon Dioxide Level 19 L 20-31 mmol/L Anion Gap 10 5-15 Blood Urea Nitrogen 19 9-23 mg/dL Creatinine 1.70 H 0.550-1.02 mg/dL Glomerular Filtration Rate Calc 35 >90 mL/min BUN/Creatinine Ratio 11.2 10.0-20.0 Serum Glucose 245 H 74-106 mg/dL Hemoglobin A1c 8.2 H <5.7 % A1C Lactic Acid Level 1.6 0.4-2.0 mmol/L Calcium Level 9.9 8.7-10.4 mg/dL Total Bilirubin 0.4 0.2-1.0 mg/dL Aspartate Amino Transferase (AST) 16 13-40 U/L Alanine Aminotransferase (ALT) 20 7-40 U/L Alkaline Phosphatase 154 H 46-116 U/L Troponin I High Sensitivity 3 L </=34 ng/L B-Type Natriuretic Peptide 16.43 0-100 pg/mL Total Protein 8.0 5.7-8.2 g/dL Albumin 4.3 3.2-4.8 g/dL Blood Gas Specimen Type Arterial Blood Gas Sample Site Left radial Blood Gas Patient Temperature 37.0 Arterial Blood Date Drawn [id number] Arterial Blood pH 7.279 L 7.350-7.450 Arterial Blood Partial Pressure CO2 48.6 H 32.0-45.0 mmHg Arterial Blood Partial Pressure O2 105.1 83.0-108.0 mmHg Arterial Blood HCO3 22.3 21.0-28.0 mmol/L Arterial Blood Oxygen Saturation 97.7 94.0-98.0 % Arterial Blood Base Excess -4.7 L -2.0-3.0 mmol/L Arterial Blood Oxyhemoglobin 96.3 94.0-98.0 % Arterial Blood Carboxyhemoglobin 0.9 0.5-1.5 % Arterial Blood Methemoglobin 0.5 0.0-1.5 % Shon Test Yes Blood Gas Total Hemoglobin 13.40 12.0-16.0 g/dL Blood Gas Liter Flow 4.00 Blood Gas Modality Nasal cannula FiO2 % 36.0 Assessment Acute kidney injury superimposed Chronic Kidney Disease stage III secondary hemodynamic mediated Acute hypoxic respiratory failure COPD exacerbation Morbid obesity Diabetes mellitus type 2 Hypertension Hyponatremia due to excess H2O Recommendations Closely monitor fluid and electrolytes Avoid nephrotoxic medications Strict I&Os Check urinalysis urine electrolytes and protein Check kidney ultrasound Fluid restrictions IV steroids IV antibiotics Insulin sliding scale Blood pressure control We will continue to follow Patient seen and examined by myself. I discussed my plan of care with the patient and primary nurse at the bedside I would like to thank Dr. Ricketts for the consult, will follow Plan discussed with: Patient MAI BARAHONA MD Aug 23, 2024 17:29
--- NOTE | 2024-08-23 18:15 | DVH ---
EXAM: US Retroperitoneal Limited, Renal CLINICAL INDICATION: iron TECHNIQUE: Real-time limited ultrasound of the retroperitoneum with image documentation. COMPARISON: None FINDINGS: RIGHT KIDNEY: Right kidney measures up to 9.7 cm. No stones. No hydronephrosis. LEFT KIDNEY: Left kidney measures up to 9.7 cm. No stones. No hydronephrosis. BLADDER: Normal-appearing urinary bladder. Postvoid volume 362 cc. OTHER FINDINGS: . IMPRESSION: No acute findings in the retroperitoneum.
[2024-08-23 18:20] LABS: Magnesium 2.4 mg/dL (1.6-2.6)
[2024-08-23 18:21] LABS: Phosphorus 2.7 mg/dL (2.4-5.1)
[2024-08-23] MEDS: methylPREDNISolone SOD SUCC 125 MG/2 ML VL IV SCH (21:23)
[2024-08-24 01:00] VITALS: BP 127/66; PULSE 82; RESP 18; TEMP 98.7; O2SAT 95
[2024-08-24 01:34] LABS: Urine Bacteria None Seen /hpf (None Seen)
[2024-08-24 01:49] LABS: Urine Blood Negative /uL (Negative); Urine Clarity Clear (Clear); Urine Color Light-Yellow (Yellow); Urine Protein, UAD Negative (Negative); Urine Specific Gravity 1.013 (1.001-1.035); Urine Squamous Epithelial Cell FEW /hpf (<5); Urine Urobilinogen Normal (Negative)
[2024-08-24 01:50] LABS: Urine WBC < 1 /HPF (0-5)
[2024-08-24 02:05] LABS: Creatinine, Urine 69.42 mg/dL (30.0-125.0); Urine Protein/Creatinine Ratio 0.1
[2024-08-24 02:06] LABS: Creatinine, Urine 68.41 mg/dL (30.0-125.0)
[2024-08-24 05:00] VITALS: BP 129/75; PULSE 77; RESP 18; TEMP 97.4; O2SAT 94
[2024-08-24] MEDS: InsuLIN REG 1unit/0.01ml Soln (100units/ml) IV ONE (07:17)
--- NOTE | 2024-08-24 08:02 | DVHPN2 ---
Reviewed: Care Plan, H&P, Labs, Medications, Previous Orders, Radiology Changes from previous H/P or p: No Changes Respiratory: Shortness of breath Objective Vitals Vital Signs Date Time Temp Pulse Resp B/P (MAP) Pulse Ox O2 Delivery O2 Flow Rate FiO2 08/24/24 05:00 97.4 77 18 129/75 (93) 94 97.4 08/23/24 20:31 Facial BiPAP Mask 30 08/23/24 20:00 0 Intake/Output Intake and Output 08/24/24 07:00 Intake Total 2150 ml Output Total 1000 ml Balance 1150 ml Intake Oral 1400 ml IV Total 750 ml Output Urine Total 1000 ml # Voids 4 Medications Current Medications Medications Dose Ordered Sig/Delio Route Start Time Stop Time Status Last Admin Dose Admin Azithromycin 250 ml @ 125 mls/hr DAILY IV 08/23/24 10:00 08/23/24 11:18 125 MLS/HR Ceftriaxone Sodium 50 ml @ 100 mls/hr DAILY@09 IV 08/23/24 09:00 08/23/24 09:28 100 MLS/HR Acetaminophen/ Hydrocodone Bitart 1 tab Q4HP PRN PO 08/22/24 15:45 Ondansetron HCl 4 mg Q4HP PRN IV 08/22/24 15:45 Acetaminophen 650 mg Q6HP PRN PO 08/22/24 15:45 Diagnostic Test (Pha) 1 strip ACHS 08/22/24 17:00 08/24/24 06:19 1 STRIP Insulin Human Regular ACHS SC 08/22/24 17:00 08/24/24 06:34 10 UNITS Dextrose 50 ml UD PRN IV 08/22/24 15:45 Famotidine 20 mg DAILY IV 08/22/24 15:45 08/23/24 09:29 20 MG Enoxaparin Sodium 40 mg DAILY SC 08/22/24 16:07 08/22/24 16:29 40 MG Enoxaparin Sodium 30 mg DAILY SC 08/22/24 16:00 UNV Methylprednisolone Sodium Succinate 40 mg Q8HR IV 08/23/24 22:00 08/24/24 06:18 40 MG Laboratory Results Laboratory Tests 08/23/24 09:03 Chemistry Test 08/23/24 09:03 Albumin 4.4 g/dL (3.2-4.8) Calcium Level 10.2 mg/dL (8.7-10.4) Magnesium Level 2.4 mg/dL (1.6-2.6) Phosphorus Level 2.7 mg/dL (2.4-5.1) Total Protein 7.8 g/dL (5.7-8.2) LFT Test 08/23/24 09:03 Alanine Aminotransferase (ALT) 18 U/L (7-40) Alkaline Phosphatase 152 U/L (46-116) H Aspartate Amino Transferase (AST) 13 U/L (13-40) Total Bilirubin 0.3 mg/dL (0.2-1.0) Urinalysis Test 08/24/24 01:30 Urine Color Light-yellow (Yellow) Urine Clarity Clear (Clear) Urine pH 5.0 (5.0-9.0) Urine Specific [place] 1.013 (1.001-1.035) Urine Protein Negative (Negative) Urine Ketones Negative (Negative) Urine Blood Negative /uL (Negative) Urine Nitrite Negative (Negative) Urine Bilirubin Negative (Negative) Urine Urobilinogen Normal mg/dL (Negative) Urine Leukocyte Esterase Negative /uL (Negative) Urine RBC <1 /hpf (0 - 4) Urine Microscopic WBC < 1 /HPF (0-5) Urine Squamous Epithelial Cells Few /hpf (<5) Urine Bacteria None seen /hpf (None Seen) Urine Osmolality 442 mOsm/kg Urine Creatinine 69.42 mg/dL (30.0-125.0) Urine Protein/Creatinine Ratio 0.10 Urine Sodium 39 mmol/L (40-220) L Urine Glucose 4+ mg/dL (Normal) H Urine Total Protein 7.0 mg/dL (1-14) Microbiology Microbiology Date/Time Source Procedure Growth Status 08/22/24 07:36 Blood Blood Culture - Preliminary NO GROWTH AFTER 48 HOURS OF INCUBATION. Resulted Labs and/or images reviewed: Labs reviewed by me, Image(s) reviewed by me Assessment/Plan Assessment/Plan Acute hypoxic respiratory failure: Oxygen by nasal cannula [place] [address] possibly secondary to pneumonia: Blood cultures negative Possible community-acquired pneumonia: Rocephin azithromycin, consult for Dr. Nash alonso Acute asthma exacerbation: Solu-Medrol, med neb History of congestive heart failure, cardiology consult by Dr. Cheung appreciated, echo 60 percent ejection fraction 05/23/2024, shortness of breath felt to be noncardiac etiology Uncontrolled diabetes with glucose 340, A1c 8.2: Insulin sliding scale Elevated D-dimer 2.11 , V/Q scan ordered to rule out PE, CT chest angiogram could not be ordered because of creatinine 1.70 DVT ruled out PE ruled out Acute kidney injury with a elevated BUN creatinine, consult for senior informatica developer Acute chest pain troponin negative x1 cardiology consult for Dr. Jay Naranjo test negative Flu test neg [place] requested transfer Time spent 50 minutes Patient is being transferred to [place] Plan discussed with: Patient My Orders Orders - MAGO LEWIS MD Procedure Category Date Status Time Nm Vq Scan NM 08/23/24 Resulted 12:14 Bilat Lower Dvt US 08/23/24 Resulted 12:14 *Dr. [facility] CONS 08/23/24 Transmitted -[place] 12:26 * Charge Auditor CONS 08/23/24 Transmitted Consult * Cardiology Consult CONS 08/23/24 Transmitted 12:48 Date of Service: Aug 24, 2024 Billing Provider: MAGO LEWIS MD Common Visit Codes: [id number] INP/OBS CARE(HIGH) MAGO LEWIS MD Aug 24, 2024 08:02
--- NOTE | 2024-08-24 08:11 | DVHDS2 ---
Discharge Summary Date of Admission Aug 22, 2024 at 15:34 Date of Discharge: Aug 24, 2024 Admitting Diagnosis Shortness of breath Wounds: None Labs/Diagnostic Data: Laboratory Results Test 08/24/24 07:25 08/24/24 01:30 08/23/24 09:03 08/22/24 15:49 POC Glucose 370 mg/dl (70-106) Urine Color Light-yellow (Yellow) Urine Clarity Clear (Clear) Urine pH 5.0 (5.0-9.0) Urine Specific [place] 1.013 (1.001-1.035) Urine Protein Negative (Negative) Urine Ketones Negative (Negative) Urine Blood Negative /uL (Negative) Urine Nitrite Negative (Negative) Urine Bilirubin Negative (Negative) Urine Urobilinogen Normal mg/dL (Negative) Urine Leukocyte Esterase Negative /uL (Negative) Urine RBC <1 /hpf (0 - 4) Urine Microscopic WBC < 1 /HPF (0-5) Urine Squamous Epithelial Cells Few /hpf (<5) Urine Bacteria None seen /hpf (None Seen) Urine Osmolality 442 mOsm/kg Urine Creatinine 69.42 mg/dL (30.0-125.0) Urine Protein/Creatinine Ratio 0.10 Urine Sodium 39 mmol/L (40-220) Urine Glucose 4+ mg/dL (Normal) Urine Total Protein 7.0 mg/dL (1-14) White Blood Count 16.3 10^3/uL (4.4-10.8) Red Blood Count 4.52 10^6/uL (4.0-5.20) Hemoglobin 12.1 g/dL (12.2-16.2) Hematocrit 37.5 % (36.0-46.0) Mean Corpuscular Volume 83.0 fL (80.0-100.0) Mean Corpuscular Hemoglobin 26.8 pg (28.0-32.0) Mean Corpuscular Hemoglobin Concent 32.3 g/dL (32.0-36.0) Red Cell Distribution Width 16.0 % (11.8-14.3) Platelet Count 260 10^3/uL (140-450) Mean Platelet Volume 9.1 fL (6.9-10.8) Neutrophils (%) (Auto) 86.8 % (37.0-80.0) Lymphocytes (%) (Auto) 11.1 % (10.0-50.0) Monocytes (%) (Auto) 1.5 % (0.0-12.0) Eosinophils (%) (Auto) 0.4 % (0.0-7.0) Basophils (%) (Auto) 0.2 % (0.0-2.0) Neutrophils # (Auto) 14.1 10 ^3/uL (1.6-8.6) Lymphocytes # (Auto) 1.8 10 ^3/uL (0.4-5.4) Monocytes # (Auto) 0.2 10 ^3/uL (0-1.3) Eosinophils # (Auto) 0.1 10 ^3/uL (0-0.8) Basophils # (Auto) 0 10 ^3/uL (0-0.2) Nucleated Red Blood Cells 0.0 % Sodium Level 132 mmol/L (136-145) Potassium Level 4.8 mmol/L (3.5-5.1) Chloride Level 102 mmol/L (98-107) Carbon Dioxide Level 23 mmol/L (20-31) Anion Gap 7 (5-15) Blood Urea Nitrogen 32 mg/dL (9-23) Creatinine 1.70 mg/dL (0.550-1.02) Glomerular Filtration Rate Calc 35 mL/min (>90) BUN/Creatinine Ratio 18.8 (10.0-20.0) Serum Glucose 268 mg/dL (74-106) Calcium Level 10.2 mg/dL (8.7-10.4) Phosphorus Level 2.7 mg/dL (2.4-5.1) Magnesium Level 2.4 mg/dL (1.6-2.6) Total Bilirubin 0.3 mg/dL (0.2-1.0) Aspartate Amino Transferase (AST) 13 U/L (13-40) Alanine Aminotransferase (ALT) 18 U/L (7-40) Alkaline Phosphatase 152 U/L (46-116) Total Protein 7.8 g/dL (5.7-8.2) Albumin 4.4 g/dL (3.2-4.8) Vitamin D 25-Hydroxy 90.7 ng/mL (30.0-100) Parathyroid Hormone (Intact) 124.7 pg/mL (18.4-80.1) D-Dimer, Quantitative 2.15 mg/L FEU (0.0-0.49) Test 08/22/24 06:30 08/22/24 05:29 08/22/24 05:08 Influenza Type A Antigen Negative (Negative) Influenza Type B Antigen Negative (Negative) SARS-CoV-2 Antigen (Rapid) Negative (NEGATIVE) Hemoglobin A1c 8.2 % A1C (<5.7) Lactic Acid Level 1.6 mmol/L (0.4-2.0) Troponin I High Sensitivity 3 ng/L (</=34) B-Type Natriuretic Peptide 16.43 pg/mL (0-100) Blood Gas Specimen Type Arterial Blood Gas Sample Site Left radial Blood Gas Patient Temperature 37.0 Arterial Blood Date Drawn [id number] Arterial Blood pH 7.279 (7.350-7.450) Arterial Blood Partial Pressure CO2 48.6 mmHg (32.0-45.0) Arterial Blood Partial Pressure O2 105.1 mmHg (83.0-108.0) Arterial Blood HCO3 22.3 mmol/L (21.0-28.0) Arterial Blood Oxygen Saturation 97.7 % (94.0-98.0) Arterial Blood Base Excess -4.7 mmol/L (-2.0-3.0) Arterial Blood Oxyhemoglobin 96.3 % (94.0-98.0) Arterial Blood Carboxyhemoglobin 0.9 % (0.5-1.5) Arterial Blood Methemoglobin 0.5 % (0.0-1.5) Shon Test Yes Blood Gas Total Hemoglobin 13.40 g/dL (12.0-16.0) Blood Gas Liter Flow 4.00 Blood Gas Modality Nasal cannula FiO2 % 36.0 Other Laboratory Tests 08/23/24 09:03 Brief Hx & Hospital Course: 59-year-old female with a history of asthma congestive heart failure diabetes admitted for shortness of breaths. Patient developed sudden onset of shortness of breath at 3:00 a.m. in the morning. Found to have community-acquired pneumonia treated with Rocephin azithromycin Solu-Medrol med neb treatment cardiology consult by Dr. Cheung ejection fraction 60 percent 05/23/2024. Simpson to be noncardiac etiology for shortness of breaths D-dimer elevated 2.11 V/Q scan negative for PE venous ultrasound negative for DVT Marcella test negative flu test negative . Troponin negative. Uncontrolled diabetes with a A1c 8.2 glucose 340. Pulmonary consult for Dr. Cao pending. Seen by Dr. Guzman for acute kidney injury BUN creatinine slightly elevated. Kidney ultrasound negative. At the time of discharge patient is on room air found eating her breakfast Patient is being transferred to [place] for further evaluation per the request of [place]. Patient agreeable for transfer. Consults/Reason for consult Cardiology Dr. Cheung Nephrology Dr. Dykes Pulmonology Dr. Cao Pending Operations or Procedures V/Q scan Kidney ultrasound Venous ultrasound lower extremities Condition at Discharge: Fair Final Diagnosis/Problems List Acute hypoxic respiratory failure: Oxygen by nasal cannula [place] [address] possibly secondary to pneumonia: Blood cultures negative Possible community-acquired pneumonia: Rocephin azithromycin, consult for Dr. Cao placed Acute asthma exacerbation: Solu-Medrol, med neb History of congestive heart failure, cardiology consult by Dr. Skye holcomb, echo 60 percent ejection fraction 05/23/2024, shortness of breath felt to be noncardiac etiology Uncontrolled diabetes with glucose 340, A1c 8.2: Insulin sliding scale Elevated D-dimer 2.11 , V/Q scan ordered to rule out PE, CT chest angiogram could not be ordered because of creatinine 1.70 DVT ruled out PE ruled out Acute kidney injury with a elevated BUN creatinine, consult for agriculture consultant Acute chest pain troponin negative x1 cardiology consult for Dr. Jay Naranjo test negative Flu test neg [place] requested transfer Time spent 50 minutes Discharge Disposition: Acute Care Facility Discharge Instruct/Medications Diet: Cardiac 2g Na,low cholest Activity: Light activity Follow Up/Referral: Follow up with the [place] Medications: see list 35 (Time taken for discharge summary 35 minutes) Discharge Statement: "Patient was advised to return to the ER or call 911 if any headaches, dizziness, shortness of breath, chest pain, abdominal pain, bleeding, fevers, or worsening of medical condition. Patient was counseled about treatment plan, medications, possible side effects, patientverbalized understanding. All questions were answered to the best of my ability. This discharge took greater then 30 minutes in planning, reviewing documentation, counseling the patient, and discussing with other team members." ASSESSMENT ASSESSMENT Hospital Course Improved Assessment Acute hypoxic respiratory failure: Oxygen by nasal cannula [place] [address] possibly secondary to pneumonia: Blood cultures negative Possible community-acquired pneumonia: Rocephin azithromycin, consult for Dr. Nash alonso Acute asthma exacerbation: Solu-Medrol, med neb History of congestive heart failure, cardiology consult by Dr. Skye holcomb, echo 60 percent ejection fraction 05/23/2024, shortness of breath felt to be noncardiac etiology Uncontrolled diabetes with glucose 340, A1c 8.2: Insulin sliding scale Elevated D-dimer 2.11 , V/Q scan ordered to rule out PE, CT chest angiogram could not be ordered because of creatinine 1.70 DVT ruled out PE ruled out Acute kidney injury with a elevated BUN creatinine, consult for agriculture consultant Acute chest pain troponin negative x1 cardiology consult for Dr. Jay Naranjo test negative Flu test neg [place] requested transfer Time spent 50 minutes Date of Service: Aug 24, 2024 Billing Provider: MAGO LEWIS MD Common Visit Codes: [id number] DISCH DAY >30min MAOG LEWIS MD Aug 24, 2024 08:11
[2024-08-24 09:00] VITALS: BP 129/75; PULSE 77; RESP 18; TEMP 98.1; O2SAT 93
--- NOTE | 2024-08-24 09:21 | DVHPN2 ---
Progress Note Date Seen: Aug 24, 2024 Medical Necessity Reason Pt with a Central, PICC or Fol: No Subjective Review of Systems: RESPIRATORY:Abnormal Other Systems: Patient seen and examined by myself today in follow-up Objective vital signs Vital Sign Date Time Temp Pulse Resp B/P (MAP) Pulse Ox O2 Delivery O2 Flow Rate FiO2 08/24/24 08:00 Room Air* 0 21 08/24/24 05:00 97.4 77 18 129/75 (93) 94 97.4 Total Intake and Output 08/23/24 08/23/24 08/24/24 15:00 23:00 07:00 Intake Total 750 ml 1000 ml 400 ml Output Total 1000 ml Balance 750 ml 0 ml 400 ml medications Current Medications Medications Dose Ordered Sig/Delio Route Start Time Stop Time Status Last Admin Dose Admin Azithromycin 250 ml @ 125 mls/hr DAILY IV 08/23/24 10:00 08/23/24 11:18 Ceftriaxone Sodium 50 ml @ 100 mls/hr DAILY@09 IV 08/23/24 09:00 08/24/24 09:16 Acetaminophen/ Hydrocodone Bitart 1 tab Q4HP PRN PO 08/22/24 15:45 Ondansetron HCl 4 mg Q4HP PRN IV 08/22/24 15:45 Acetaminophen 650 mg Q6HP PRN PO 08/22/24 15:45 Diagnostic Test (Pha) 1 strip ACHS 08/22/24 17:00 08/24/24 06:19 Insulin Human Regular ACHS SC 08/22/24 17:00 08/24/24 06:34 Dextrose 50 ml UD PRN IV 08/22/24 15:45 Famotidine 20 mg DAILY IV 08/22/24 15:45 08/24/24 09:17 Enoxaparin Sodium 40 mg DAILY SC 08/22/24 16:07 08/24/24 09:17 Enoxaparin Sodium 30 mg DAILY SC 08/22/24 16:00 UNV Methylprednisolone Sodium Succinate 40 mg Q8HR IV 08/23/24 22:00 08/24/24 06:18 Examination: LUNGS:Normal, CVS:Normal, MSK:Normal laboratory and microbiology Laboratory Tests 08/23/24 09:03 Test 08/23/24 09:03 Range/Units Serum Glucose 268 H 74-106 mg/dL Microbiology Date/Time Source Procedure Growth Status 08/22/24 07:36 Blood Blood Culture - Preliminary NO GROWTH AFTER 48 HOURS OF INCUBATION. Resulted Problem List/Assessment/Plan Problem List/Assessment/Plan Acute kidney injury superimposed Chronic Kidney Disease stage III secondary hemodynamic mediated Acute hypoxic respiratory failure COPD exacerbation Morbid obesity Diabetes mellitus type 2 Hypertension Hyponatremia due to excess H2O Recommendations Kidney function stable stage IIIB Increased urine output Strict I&Os kidney ultrasound reported within normal limits Fluid restrictions IV steroids IV antibiotics Insulin sliding scale Blood pressure control We will continue to follow Plan discussed with: Patient My Orders My Orders Orders - MAI BARAHONA MD Procedure Category Date Status Time Kidney US 08/23/24 Resulted 17:31 MAI BARAHONA MD Aug 24, 2024 09:21
[2024-08-24 10:00] VITALS: O2SAT 93
[2024-08-24 13:00] VITALS: BP 144/73; PULSE 80; RESP 20; TEMP 98.3; O2SAT 94
--- NOTE | 2024-08-24 14:18 | DVHINCON2 ---
Date of service: Aug 24, [address] Gloria Ricketts Reason for Consultation Acute respiratory failure History of Present Illness History Source: Patient Exam Limitations: No limitations HPI Patient is a 59-year old lady with a history of diabetes, asthma and CKD who presented with shortness of breath. Was seen in the emergency room where she was admitted for symptoms consistent with acute asthma attack and the patient was started on IV steroids. Pulmonology was consulted in view of hypoxemia. Home Meds Reported Medications Insulin Degludec (Tresiba Flextouch) 200 Unit/Ml Inj, 30 UNIT SC DAILY 08/23/24 Loperamide HCl (Loperamide Hydrochloride) 2 Mg Cap, PO 08/23/24 Empagliflozin (Jardiance) 10 Mg Tab, 1 TAB PO DAILY 08/23/24 Albuterol Sulfate (Albuterol Sulfate) 0.083 % Neb, 1 VIAL NEB Q6HPRN PRN for wheezing 08/23/24 Finerenone (Kerendia) 10 Mg Tab, 1 TAB PO DAILY 08/23/24 Fxafgozyjre-Reumiqohauur-Siici (Trelegy Ellipta 100-62.5-25 Mcg/INH) 1 Aer Aer, 1 PO DAILY 08/23/24 Insulin Degludec (Insulin Degludec) 100 Unit/Ml Inj, 36 UNIT SC, INJ 05/22/24 Insulin Aspart (Novolog Relion) 100 Unit/Ml Inj, 36 UNIT SC, INJ 05/22/24 Ergocalciferol (Vitamin D) 50,000 Unit Cap, 1 CAP PO QWEEKLY 05/22/24 Losartan Potassium (Losartan Potassium) 25 Mg Tab, 1 TAB DAILY 05/22/24 Past Medical History Cardiac: No pertinent Hx Pulmonary: Asthma Central Nervous System: No pertinent Hx GI: No pertinent Hx Hemotology/Oncology: No pertinent Hx Hepatobiliary: Other (CKD) Psychiatric: No pertinent Hx Musculoskeletal: No pertinent Hx Rheumotologic: No pertinent Hx Infectious Disease: No peritnent Hx ENT: No pertinent Hx Renal/: No pertinent Hx Endocrine: NIDDM Dermatology: No pertinent Hx Past Surgical History: No pertinent Hx Family History: No pertinent Hx Patient Family History: Patient reports no known family medical history. Smoker: No Hx (Negative) Alocohol: None Drugs: None Lives with: With family Domestic Violence: Neg Review of Systems Constitutional: No symptom reported Ears, Nose, & Throat: No symptom reported Eyes: No symptom reported Pulmonary/Respiratory: Dyspnea Cardiovascular: No symptom reported Gastrointestinal: No symptom reported Genitourinary: No symptom reported Musculoskeletal: No symptom reported Skin: No symptom reported Psychiatric: No symptom reported Endocrine: No symptom reported Hemotologic/Lymphatic: No symptom reported H&P Exam Vital Signs Vital Signs Date Time Temp Pulse Resp B/P (MAP) Pulse Ox O2 Delivery O2 Flow Rate FiO2 08/24/24 10:00 93 Room Air* 0 21 08/24/24 09:00 98.1 77 18 129/75 (93) 98.1 General Appeara: Well developed, Well nourished, Normal Appearance Head Exam: Normal inspection Neck Exam: Normal inspection, Non-tender, Normal alignment Eye Exam: bilateral eye Normal inspection, bilateral eye PERRL, bilateral eye EOMI Ear Exam: bilateral ear Auricle normal, bilateral ear Canal normal, bilateral ear TM normal Nasal Exam: Normal inspection Mouth: Normal Inspection Pulmonary/Respiratory: Normal inspection, Normal breath sounds, Chest non- tender, Lungs clear Cardiovascular/Chest: Normal inspection, Regular rate, Normal Rhythm Peripheral Pulses: 4+ Radial (R), 4+ Radial (L), 4+ Brachial (R), 4+ Brachial (L) Abdominal Exam: Normal bowel sounds Labs/Xrays Labs Test 08/24/24 11:09 08/24/24 01:30 08/23/24 09:03 08/22/24 15:49 Range/Units POC Glucose 398 H 70-106 mg/dl Urine Color Light-yellow Yellow Urine Clarity Clear Clear Urine pH 5.0 5.0-9.0 Urine Specific Morris 1.013 1.001-1.035 Urine Protein Negative Negative Urine Ketones Negative Negative Urine Blood Negative Negative /uL Urine Nitrite Negative Negative Urine Bilirubin Negative Negative Urine Urobilinogen Normal Negative mg/dL Urine Leukocyte Esterase Negative Negative /uL Urine RBC <1 0 - 4 /hpf Urine Microscopic WBC < 1 0-5 /HPF Urine Squamous Epithelial Cells Few <5 /hpf Urine Bacteria None seen None Seen /hpf Urine Osmolality 442 mOsm/kg Urine Creatinine 69.42 30.0-125.0 mg/dL Urine Protein/Creatinine Ratio 0.10 Urine Sodium 39 L 40-220 mmol/L Urine Glucose 4+ H Normal mg/dL Urine Total Protein 7.0 1-14 mg/dL White Blood Count 16.3 H 4.4-10.8 10^3/uL Red Blood Count 4.52 4.0-5.20 10^6/uL Hemoglobin 12.1 L 12.2-16.2 g/dL Hematocrit 37.5 36.0-46.0 % Mean Corpuscular Volume 83.0 80.0-100.0 fL Mean Corpuscular Hemoglobin 26.8 L 28.0-32.0 pg Mean Corpuscular Hemoglobin Concent 32.3 32.0-36.0 g/dL Red Cell Distribution Width 16.0 H 11.8-14.3 % Platelet Count 260 140-450 10^3/uL Mean Platelet Volume 9.1 6.9-10.8 fL Neutrophils (%) (Auto) 86.8 H 37.0-80.0 % Lymphocytes (%) (Auto) 11.1 10.0-50.0 % Monocytes (%) (Auto) 1.5 0.0-12.0 % Eosinophils (%) (Auto) 0.4 0.0-7.0 % Basophils (%) (Auto) 0.2 0.0-2.0 % Neutrophils # (Auto) 14.1 H 1.6-8.6 10 ^3/uL Lymphocytes # (Auto) 1.8 0.4-5.4 10 ^3/uL Monocytes # (Auto) 0.2 0-1.3 10 ^3/uL Eosinophils # (Auto) 0.1 0-0.8 10 ^3/uL Basophils # (Auto) 0 0-0.2 10 ^3/uL Nucleated Red Blood Cells 0.0 % Sodium Level 132 L 136-145 mmol/L Potassium Level 4.8 3.5-5.1 mmol/L Chloride Level 102 98-107 mmol/L Carbon Dioxide Level 23 20-31 mmol/L Anion Gap 7 5-15 Blood Urea Nitrogen 32 #H 9-23 mg/dL Creatinine 1.70 H 0.550-1.02 mg/dL Glomerular Filtration Rate Calc 35 >90 mL/min BUN/Creatinine Ratio 18.8 10.0-20.0 Serum Glucose 268 H 74-106 mg/dL Calcium Level 10.2 8.7-10.4 mg/dL Phosphorus Level 2.7 2.4-5.1 mg/dL Magnesium Level 2.4 1.6-2.6 mg/dL Total Bilirubin 0.3 0.2-1.0 mg/dL Aspartate Amino Transferase (AST) 13 13-40 U/L Alanine Aminotransferase (ALT) 18 7-40 U/L Alkaline Phosphatase 152 H 46-116 U/L Total Protein 7.8 5.7-8.2 g/dL Albumin 4.4 3.2-4.8 g/dL Vitamin D 25-Hydroxy 90.7 30.0-100 ng/mL Parathyroid Hormone (Intact) 124.7 H 18.4-80.1 pg/mL D-Dimer, Quantitative 2.15 H 0.0-0.49 mg/L FEU Test 08/22/24 06:30 08/22/24 05:29 08/22/24 05:08 Range/Units Influenza Type A Antigen Negative Negative Influenza Type B Antigen Negative Negative SARS-CoV-2 Antigen (Rapid) Negative NEGATIVE Hemoglobin A1c 8.2 H <5.7 % A1C Lactic Acid Level 1.6 0.4-2.0 mmol/L Troponin I High Sensitivity 3 L </=34 ng/L B-Type Natriuretic Peptide 16.43 0-100 pg/mL Blood Gas Specimen Type Arterial Blood Gas Sample Site Left radial Blood Gas Patient Temperature 37.0 Arterial Blood Date Drawn [id number] Arterial Blood pH 7.279 L 7.350-7.450 Arterial Blood Partial Pressure CO2 48.6 H 32.0-45.0 mmHg Arterial Blood Partial Pressure O2 105.1 83.0-108.0 mmHg Arterial Blood HCO3 22.3 21.0-28.0 mmol/L Arterial Blood Oxygen Saturation 97.7 94.0-98.0 % Arterial Blood Base Excess -4.7 L -2.0-3.0 mmol/L Arterial Blood Oxyhemoglobin 96.3 94.0-98.0 % Arterial Blood Carboxyhemoglobin 0.9 0.5-1.5 % Arterial Blood Methemoglobin 0.5 0.0-1.5 % Shon Test Yes Blood Gas Total Hemoglobin 13.40 12.0-16.0 g/dL Blood Gas Liter Flow 4.00 Blood Gas Modality Nasal cannula FiO2 % 36.0 Microbiology Date/Time Source Procedure Growth Status 08/22/24 07:36 Blood Blood Culture - Preliminary NO GROWTH AFTER 48 HOURS OF INCUBATION. Resulted Assessment/Plan Plan Impression Acute hypoxemic respiratory failure Acute asthma ? Sepsis Dyspnea Patient seen and examined Events Low oxygen requirements On 2 liters nasal cannula Vital signs stable Labs and imaging reviewed Chest x-ray unremarkable Management Supplemental oxygen Titrate to maintain sats 90% or above Incentive spirometry Empiric antibiotics De-escalate based on cultures Bronchodilators Steroids Monitor renal function Monitor electrolytes Supplement as needed DVT prophylaxis Plan discussed with: Patient LISA JOENS MD Aug 24, 2024 14:18
[2024-08-24 16:42] VITALS: BP 142/74; PULSE 79; RESP 18; TEMP 98.5; O2SAT 94
== END 2024-08-24 18:51 | disposition short-term general hospital (02) | DRG 871 ==
LOC: ER 04:42 → EDBD 04:42 → OVERFLOW 15:34 → CENTRAL 08-23 04:29
PROVIDERS: ADMIT Family Medicine; ATTEND Family Medicine
PROC: 5A09357 Assistance with Respiratory Ventilation, Less than 24 Consecutive Hours, Continuous Positive Airway Pressure (ICD-10-PCS; principal; 2024-08-22)
PROC: 5A09357 Assistance with Respiratory Ventilation, Less than 24 Consecutive Hours, Continuous Positive Airway Pressure (ICD-10-PCS; 2024-08-23)
DX: A41.9 Sepsis, unspecified organism (principal); J18.9 Pneumonia, unspecified organism; J96.01 Acute respiratory failure with hypoxia; J44.0 Chronic obstructive pulmonary disease with (acute) lower respiratory infection; I13.0 Hypertensive heart and chronic kidney disease with heart failure and stage 1 through stage 4 chronic kidney disease, or unspecified chronic kidney disease; J44.1 Chronic obstructive pulmonary disease with (acute) exacerbation; J45.901 Unspecified asthma with (acute) exacerbation; E87.1 Hypo-osmolality and hyponatremia; N17.9 Acute kidney failure, unspecified; Z20.822 Contact with and (suspected) exposure to COVID-19; D25.9 Leiomyoma of uterus, unspecified; I50.9 Heart failure, unspecified; N18.30 Chronic kidney disease, stage 3 unspecified; E11.22 Type 2 diabetes mellitus with diabetic chronic kidney disease; E78.5 Hyperlipidemia, unspecified; E66.01 Morbid (severe) obesity due to excess calories; Z96.611 Presence of right artificial shoulder joint; Z98.51 Tubal ligation status; Z90.49 Acquired absence of other specified parts of digestive tract; Z98.891 History of uterine scar from previous surgery; Z79.4 Long term (current) use of insulin; Z79.84 Long term (current) use of oral hypoglycemic drugs; Z86.73 Personal history of transient ischemic attack (TIA), and cerebral infarction without residual deficits; Z68.38 Body mass index [BMI] 38.0-38.9, adult
CPT/HCPCS: 36415; 36600; 71045; 76775; 78582; 80053; 81001; 82306; 82570; 82805; 82962; 83036; 83605; 83735; 83880; 83935; 83970; 84100; 84156; 84300; 84484; 85025; 85379; 87040; 87086; 87426; 87804; 93005; 93970; 94640; 94660; 96365; 96366; 96367; 96372; G0378; J1100; J1815; J3490